=== PATIENT | male | born 1985 | race Two or more races ===

== ENCOUNTER 2018-07-11 09:31 | Emergency (ER) | payer MEDICAID, OTHER ==
[~2018-07-11] VITALS: Ht 182.9 cm; Wt 136.1 kg
[~2018-07-11 09:31] MED LIST: CLIN300C2
[2018-07-11 09:39] VITALS: BP 134/89
[2018-07-11] MEDS ORDERED: KETOROLAC TROMETH 60MG/2ML VIAL IM ONE (11:15)
== END 2018-07-11 11:40 | disposition home or self-care (01) ==
LOC: ER 09:33
DX: G89.29 Other chronic pain (principal); M54.5 Low back pain; M43.07 Spondylolysis, lumbosacral region; X50.0XXA Overexertion from strenuous movement or load, initial encounter; Y93.89 Activity, other specified; Y99.8 Other external cause status; Y92.89 Other specified places as the place of occurrence of the external cause
CPT/HCPCS: 72100; 96372; 99283; J1885

== ENCOUNTER 2022-09-02 11:37 | Inpatient (IN) | payer OTHER, MEDICAID ==
[~2022-09-02] VITALS: Ht 182.9 cm; Wt 143.0 kg
[2022-09-02 14:43] LABS: Urine Bacteria NONE SEEN /hpf (None Seen); Urine Blood Negative /uL (Negative); Urine Mucus FEW (None Seen); Urine Specific Gravity 1.021 (1.001-1.035); Urine WBC 1 /hpf (0 - 3)
[2022-09-02 15:47] LABS: Basophils # (auto) 0.1 10 ^3/uL (0-0.2); Basophils % (auto) 0.6 % (0.0-2.0); Eosinophils # (auto) 0.3 10 ^3/uL (0-0.8); Eosinophils % (auto) 3.8 % (0.0-7.0); Hematocrit 46.5 % (41.0-53.0); Hemoglobin 16.1 g/dL (13.5-17.5); Lymphocytes # (auto) 2.6 10 ^3/uL (0.4-5.4); Lymphocytes % (auto) 30.9 % (10.0-50.0); Mean Corpuscular Hemoglobin 32.7 pg (28.0-32.0); Mean Corpuscular Hgb Conc. 34.7 g/dL (32.0-36.0); Mean Corpuscular Volume 94.4 fL (80.0-100.0); Monocytes # (auto) 0.7 10 ^3/uL (0-1.3); Monocytes % (auto) 8.6 % (0.0-12.0); Neutrophils # (auto) 4.8 10 ^3/uL (1.6-8.6); Neutrophils % (auto) 56.1 % (37.0-80.0); Nucleated Red Blood Cells % 0.1 %; Red Blood Cells 4.93 10^6/uL (4.5-5.90); Red Cell Distribution Width 12.9 % (11.8-14.3); White Blood Cell 8.5 10^3/uL (4.4-10.8)
[2022-09-02 16:05] LABS: Albumin 3.7 g/dL (3.4-5.0); BUN/Creatinine Ratio 15.8 (10.0-20.0); Calcium 8.5 mg/dL (8.5-10.1); Potassium 4.4 mmol/L (3.5-5.1)
[2022-09-02 16:08] LABS: Bilirubin, Total 0.6 mg/dL (0.2-1.0); Total Protein 6.9 g/dL (6.4-8.2)
[2022-09-02] MEDS ORDERED: NITROGLYCERIN 0.4 MG SL TAB SL PRN (18:00)
[2022-09-02] MEDS ORDERED: MORPHINE SULFATE INJ 2 MG/ml SYRG IV PRN (18:00)
[2022-09-02] MEDS ORDERED: HYDROcodone-ACET 5/325MG TAB PO PRN (18:00)
[2022-09-02] MEDS ORDERED: ACETAMINOPHEN 325 MG TAB PO PRN (18:00)
[2022-09-02] MEDS ORDERED: ATOR20TA50 PO (18:03)
[2022-09-02] MEDS ORDERED: LISI40TA16 PO (18:03)
[2022-09-02] MEDS ORDERED: KETOROLAC TROMETH 30 MG/ML 1ML VIAL IV PRN (18:15)
[2022-09-02] MEDS ORDERED: MECLIZINE HCL 25 MG TAB PO PRN (18:15)
[2022-09-02] MEDS ORDERED: ASPirin 325 MG TAB PO ONE (18:15)
[2022-09-02] MEDS ORDERED: KETOROLAC TROMETH 30 MG/ML 1ML VIAL IV ONE (18:15)
[2022-09-02 18:52] LABS: Cholesterol 121 mg/dL (< 200)
[2022-09-02 18:55] LABS: HDL Cholesterol 43 mg/dL (40-59); LDL Cholesterol 69 mg/dL (< 100); Triglycerides 109 mg/dL (< 150)
[2022-09-02] MEDS: SODIUM CHLORIDE 0.9% 1,000 ML IV SCH (23:30)
[2022-09-03 00:53] VITALS: BP 132/94
[2022-09-03 05:00] VITALS: BP_SYST 110; BP_SYST 111; BP_SYST 129; BP_DIAS 58; BP_DIAS 62; BP_DIAS 80
[2022-09-03 05:40] LABS: Basophils # (auto) 0.1 10 ^3/uL (0-0.2); Basophils % (auto) 0.6 % (0.0-2.0); Eosinophils # (auto) 0.4 10 ^3/uL (0-0.8); Eosinophils % (auto) 4.2 % (0.0-7.0); Hematocrit 43.3 % (41.0-53.0); Hemoglobin 15.2 g/dL (13.5-17.5); Lymphocytes # (auto) 3.2 10 ^3/uL (0.4-5.4); Lymphocytes % (auto) 33.9 % (10.0-50.0); Mean Corpuscular Hemoglobin 33.3 pg (28.0-32.0); Mean Corpuscular Hgb Conc. 35.1 g/dL (32.0-36.0); Mean Corpuscular Volume 94.9 fL (80.0-100.0); Monocytes # (auto) 0.8 10 ^3/uL (0-1.3); Monocytes % (auto) 8.3 % (0.0-12.0); Neutrophils # (auto) 4.9 10 ^3/uL (1.6-8.6); Nucleated Red Blood Cells % 0.1 %; Red Blood Cells 4.57 10^6/uL (4.5-5.90); Red Cell Distribution Width 12.9 % (11.8-14.3); White Blood Cell 9.3 10^3/uL (4.4-10.8)
[2022-09-03 05:55] LABS: Albumin 3.3 g/dL (3.4-5.0); Potassium 4.2 mmol/L (3.5-5.1)
[2022-09-03 05:59] LABS: Bilirubin, Total 0.8 mg/dL (0.2-1.0); Total Protein 6.2 g/dL (6.4-8.2)
[2022-09-03] MEDS: SODIUM CHLORIDE 0.9% 1,000 ML IV SCH (07:20)
[2022-09-03 09:00] VITALS: BP 113/74
[2022-09-03] MEDS ORDERED: ATORVASTATIN 20 MG TAB PO SCH (10:00)
[2022-09-03] MEDS ORDERED: ASPirin 81 mg TAB PO SCH (10:00)
[2022-09-03] MEDS ORDERED: LISINOPRIL 20 MG TAB PO SCH (10:00)
[2022-09-03 13:16] VITALS: BP 123/82
[2022-09-03 17:00] VITALS: BP 125/77
[2022-09-03 19:31] VITALS: BP 115/75
== END 2022-09-03 21:00 | disposition home or self-care (01) | DRG 103 ==
LOC: ER 11:37 → TELE 18:01 → TELE-WESTW 23:10
PROVIDERS: ADMIT Nurse Practitioner Family; ATTEND Internal Medicine
DX: G43.909 Migraine, unspecified, not intractable, without status migrainosus (principal); Z68.41 Body mass index [BMI] 40.0-44.9, adult; E66.01 Morbid (severe) obesity due to excess calories; E78.5 Hyperlipidemia, unspecified; F17.210 Nicotine dependence, cigarettes, uncomplicated; I10 Essential (primary) hypertension
CPT/HCPCS: 36415; 70450; 70551; 71045; 80053; 80061; 81001; 84443; 84484; 85025; 93005; 93886; G0378; J1885

== ENCOUNTER 2023-05-09 06:53 | Emergency (ER) | payer OTHER, MEDICAID ==
[~2023-05-09] VITALS: Ht 182.9 cm; Wt 150.0 kg
[~2023-05-09 06:53] MED LIST changes: +ATOR20TA50 PO; +LISI40TA16 PO
[2023-05-09 07:25] VITALS: BP 115/88; PULSE 102; RESP 15; TEMP 98.2; O2SAT 96
[2023-05-09 08:19] LABS: COVID19 ANTIGEN SOFIA FIA NEGATIVE (NEGATIVE); Rapid Influenza A Negative (Negative)
[2023-05-09 08:24] LABS: Rapid Influenza B Positive (Negative)
[2023-05-09] MEDS ORDERED: PROM1SOL4 PO (08:33)
[2023-05-09] MEDS ORDERED: PRED20TA2 PO (08:33)
[2023-05-09] MEDS ORDERED: TAMIFLU PO (08:33)
== END 2023-05-09 08:39 | disposition home or self-care (01) ==
LOC: ER 06:53
DX: J10.1 Influenza due to other identified influenza virus with other respiratory manifestations (principal); J20.9 Acute bronchitis, unspecified; I10 Essential (primary) hypertension; E78.5 Hyperlipidemia, unspecified; Z20.822 Contact with and (suspected) exposure to COVID-19
CPT/HCPCS: 36415; 71046; 87426; 87804

== ENCOUNTER 2024-09-16 21:20 | Inpatient (IN) | payer MEDICAID, OTHER ==
[~2024-09-16] VITALS: Ht 180.3 cm; Wt 146.7 kg
[~2024-09-16 21:20] MED LIST changes: +PRED20TA2 PO; +PROM1SOL4 PO; +TAMIFLU PO
--- NOTE | 2024-09-16 22:06 | ED.PDOC ---
HPI (NEURO) HPI Comments 39-year-old male came to ER for headache. Patient has a history of migraines, hypertension and dyslipidemia. States 2 days ago he started experiencing left fronto parietal headaches, aching, throbbing, constant, nonradiating. 2 hours ago, he started noticing blurring of his peripheral vision of the right eye, unable to see clearly the right lateral area of his vision. Patient also states he had difficulty verbalizing/ forming words, onset around the same time as the visual disturbance. He states the speech difficulty lasted about 10 minutes, then resolved, however the visual disturbance is persistent. Patient also complaining of generalized weakness. Blood pressure upon arrival was 155/98 mm Hg. Chief Complaint: Headaches Time Seen by MD: 22:04 Primary Care Provider: HALLE Mcdermott Notes: Nurses Notes Information Source: Patient Mode of Arrival: Ambulatory Severity: Moderate Dizziness/Weakness Severity: Unable to do activities Headache Severity: Moderate Timing: Days Duration: Intermittent Prehospital treatment: None Headache Quality: Throbbing, Aching Headache Location: Frontal (left ), Parietal (left) Weakness Location: Generalized Onset: With light exertion Circumstances: Spontaneous Symptoms: Difficult speech, Change of vision, Vision loss, Difficulty talking Associated Signs and Symptoms: Headache, Blurred Vision Past Medical History PAST MEDICAL HISTORY: High Lipids, HTN Surgical History: Denies all surgeries Family History Family History: Reviewed,noncontributory to illness Social History Smoker: Non-Smoker Alcohol: Occasionally Drugs: Denies Drug Use Lives In: Home Constitutional: denies: chills, diaphoresis, fatigue, fever, malaise, sweats, weakness, others EENTM: reports: blurred vision; denies: double vision, ear bleeding, ear discharge, ear drainage, ear pain, ear ringing, eye pain, eye redness, hearing loss, mouth pain, mouth swelling, nasal discharge, nose bleeding, nose congestion, nose pain, photophobia, tearing, throat pain, throat swelling, voice changes, others Respiratory: denies: cough, hemoptysis, orthopnea, SOB at rest, shortness of breath, SOB with excertion, stridor, wheezing, others Cardiovascular: denies: chest pain, dizzy spells, diaphoresis, Dyspnea on exertion, edema, irregular heart beat, left arm pain, lightheadedness, palpitations, PND, syncope, others Gastrointestinal: denies: abdomen distended, abdominal pain, blood streaked bowels, constipated, diarrhea, dysphagia, difficulty swallowing, hematemesis, melena, nausea, poor appetite, poor fluid intake, rectal bleeding, rectal pain, vomiting, others Genitourinary: denies: burning, dysuria, flank pain, frequency, hematuria, incontinence, penile discharge, penile sore, pain, testicle pain, testicle swelling, urgency, others Neurological: reports: headache, speech problems; denies: dizziness, fainting, left sided numbness, left sided weakness, numbness, paresthesia, pre-existing deficit, right sided numbness, right sided weakness, seizure, tingling, tremors, weakness, others Musculoskeletal: denies: back pain, gout, joint pain, joint swelling, muscle pain, muscle stiffness, neck pain, others Integumetry: denies: bruises, change in color, change in hair/nails, dryness, laceration, lesions, lumps, rash, wounds, others Allergic/Immunocompromised: denies: Difficulty Healing, Frequent Infections, Hives, Itching, others Hematologic/Lymphatic: denies: anemia, blood clots, easy bleeding, easy bruising, swollen glands, others Endocrine: denies: excessive hunger, excessive sweating, excessive thirst, excessive urination, flushing, intolerance to cold, intolerance to heat, unexplained weight gain, unexplained weight loss, others Psychiatric: denies: anxiety, bipolar disorder, depression, hopeless, panic disorder, schizophrenia, sleepless, suicidal, others Physical Exam General Appearance: No Apparent Distress, Obese HEENT: PERRL/EOMI, Other (No facial asymmetry. Moist mucous membranes.) Neck: Full Range of Motion, Non-Tender, Normal Inspection, Supple Respiratory: Lungs Clear, No Accessory Muscle Use, No Respiratory Distress, Normal Breath Sounds Cardiovascular: No Edema, No JVD, Regular Rate/Rhythm Breast Exam: Deferred Gastrointestinal: Non Tender, Soft Genitalia: Deferred Pelvic: Deferred Rectal: Deferred Extremities: Normal inspection, Normal range of motion, Non-tender, No pedal edema Neurologic: Alert (Oriented x4), nurse discharge planner II-XII nml as Tested, Headache, No Motor Deficits, Normal Affect, Normal Mood, Other (Patient reports visual distortion of the right visual field periphery) Cerebellar Function: Normal Reflexes: NOT DONE Skin: Dry, Normal Color, Warm Lymphatic: NOT DONE Was a procedure done? Was a procedure done?: No Differential Diagnosis (SZ) CVA: CVA, Electrolyte Imbalance, Encephalopathy, TIA Headache: Migraine, CVA X-Ray, Labs, Meds, VS Vital Signs Date Time Temp Pulse Resp B/P (MAP) Pulse Ox O2 Delivery O2 Flow Rate FiO2 09/16/24 23:20 98.0 83 16 134/92 (106) 96 98.0 09/16/24 23:20 Room Air* 0 21 09/16/24 21:30 97.8 95 18 155/98 (117) 96 97.8 Lab Test 09/16/24 22:51 09/16/24 22:07 Range/Units Troponin I High Sensitivity 5 3 L </=54 ng/L White Blood Count 11.7 H 4.4-10.8 10^3/uL Red Blood Count 5.00 4.5-5.90 10^6/uL Hemoglobin 15.9 13.5-17.5 g/dL Hematocrit 46.7 41.0-53.0 % Mean Corpuscular Volume 93.4 80.0-100.0 fL Mean Corpuscular Hemoglobin 31.8 28.0-32.0 pg Mean Corpuscular Hemoglobin Concent 34.0 32.0-36.0 g/dL Red Cell Distribution Width 13.5 11.8-14.3 % Platelet Count 222 140-450 10^3/uL Mean Platelet Volume 9.3 6.9-10.8 fL Neutrophils (%) (Auto) 69.7 37.0-80.0 % Lymphocytes (%) (Auto) 20.0 10.0-50.0 % Monocytes (%) (Auto) 7.7 0.0-12.0 % Eosinophils (%) (Auto) 2.1 0.0-7.0 % Basophils (%) (Auto) 0.5 0.0-2.0 % Neutrophils # (Auto) 8.2 1.6-8.6 10 ^3/uL Lymphocytes # (Auto) 2.3 0.4-5.4 10 ^3/uL Monocytes # (Auto) 0.9 0-1.3 10 ^3/uL Eosinophils # (Auto) 0.2 0-0.8 10 ^3/uL Basophils # (Auto) 0.1 0-0.2 10 ^3/uL Nucleated Red Blood Cells 0.1 % Sodium Level 141 136-145 mmol/L Potassium Level 4.4 3.5-5.1 mmol/L Chloride Level 107 98-107 mmol/L Carbon Dioxide Level 25 20-31 mmol/L Anion Gap 9 5-15 Blood Urea Nitrogen 12 9-23 mg/dL Creatinine 1.30 0.700-1.30 mg/dL Glomerular Filtration Rate Calc 71 >90 mL/min BUN/Creatinine Ratio 9.2 L 10.0-20.0 Serum Glucose 102 74-106 mg/dL Calcium Level 10.2 8.7-10.4 mg/dL Current Medications Medications (Trade) Dose Ordered Sig/Jose Route Start Time Stop Time Status Last Admin Acetaminophen/ Hydrocodone Bitart (Forbes 5/325MG Tab) 1 tab ONCE ONCE PO 09/16/24 22:00 09/16/24 22:01 DC 09/16/24 23:19 CT HEAD WITHOUT CONTRAST INDICATION: L sided TRIVEDI, speech difficulty, L periph vision deficit EXAM DATE: 09/16/2024 10:07 PM COMPARISON: CT HEAD WITHOUT CONTRAST on DOS: 09/02/22 RADIATION DOSE: CTDIvol: 59.97 mGy, DLP: 1181.8 mGy*cm PROCEDURE: CT scans of the head were obtained from the vertex to the skull base. Sagittal and coronal reconstructions were provided. All CT scans at this medical facility are performed using dose modulation techniques as appropriate to a performed exam including the following: Automated exposure control was utilized; adjustment of the MA and/or KV according to patient size; and use of iterative reconstruction technique. FINDINGS: The cerebral parenchyma appears to be normal configuration and attenuation. The ventricles, cisterns, and sulci appear age-appropriate. There is no evidence for acute territorial infarct, hemorrhage, or mass effect. The orbits are normal. The visualized paranasal sinuses and mastoid air cells are clear. The soft tissues and osseous structures appear within normal limits. IMPRESSION: 1. No acute territorial infarct, intracranial hemorrhage, or mass effect. If clinical symptoms persist, MRI may be beneficial in further assessment. CHEST RADIOGRAPH Indication: possible cva Technique: Single frontal view of the chest was obtained Comparison: XY CHEST XRAY 1 VIEW on DOS: 09/02/22 FINDINGS: Lines and Tubes: None Lungs: No focal consolidation. Pleura: No effusion. No pneumothorax. Cardiomediastinal contours: Unremarkable Bones: No acute osseous abnormality. IMPRESSION: 1. No acute cardiopulmonary disease. X-Ray, Labs, Meds, VS Comment 39-year-old male with a history of hypertension, dyslipidemia and migraines complaining of headache, right-sided peripheral visual disturbance, and transient speech difficulty Vitals remarkable for BP 155/98 Exam remarkable for reporting of right eye peripheral visual field distortion Rhythm strip independently interpreted by me: Sinus rhythm, rate 95, no ectopy. CT head unremarkable Chest x-ray unremarkable CBC remarkable for WBC 11.7, basic metabolic panel and 2 serial troponins unremarkable Patient treated with the following in the ED: Forbes 5/325 mg p.o., aspirin 325 mg p.o. with improvement of headache. No new neurologic changes during his stay in the ED. Plan is to admit the patient for brain MRI and Neurology evaluation. Time of 1ST Reevaluation: 21:58 Reevaluation 1ST: Unchanged Patient Education/Counseling: Diagnosis, Treatment Family Education/Counseling: No Family Present Departure 1 Departure Time of Disposition: 23:30 Impression: Primary Impression: Cephalgia Additional Impressions: Visual disturbance Transient speech disturbance Disposition: ADMITTED INPATIENT Admit to: Tele Condition: Guarded Critical Care Note Critical Care Time?: Yes (35 min-critical care time only) Critical care comment: Critical care time including multiple bedside re-evaluations, review of lab and imaging studies, and discussion of the case with the admitting provider. Fadumo ent is high risk for neurologic decompensation. Stability Stability form required: No Heart Score Heart Score: Heart Score Response (Comments) Value History N/A 0 EKG N/A 0 Age N/A 0 Risk Factors N/A 0 Troponin N/A 0 Total 0 I personally scribed for JAIMIE RICHTER MD ([email or web address]) on 09/16/24 at 22:05. Electronically submitted by Edy Romero ([facility]). I personally scribed for JAIMIE RICHTER MD ([email or web address]) on 09/16/24 at 22:58. Electronically submitted by Edy Romero ([facility]). JAIMIE RICHTER MD Sep 16, 2024 22:05
[2024-09-16 22:22] LABS: Basophils # (auto) 0.1 10 ^3/uL (0-0.2); Basophils % (auto) 0.5 % (0.0-2.0); Eosinophils # (auto) 0.2 10 ^3/uL (0-0.8); Eosinophils % (auto) 2.1 % (0.0-7.0); Hematocrit 46.7 % (41.0-53.0); Hemoglobin 15.9 g/dL (13.5-17.5); Lymphocytes # (auto) 2.3 10 ^3/uL (0.4-5.4); Mean Corpuscular Hemoglobin 31.8 pg (28.0-32.0); Mean Corpuscular Volume 93.4 fL (80.0-100.0); Monocytes # (auto) 0.9 10 ^3/uL (0-1.3); Monocytes % (auto) 7.7 % (0.0-12.0); Neutrophils # (auto) 8.2 10 ^3/uL (1.6-8.6); Neutrophils % (auto) 69.7 % (37.0-80.0); Nucleated Red Blood Cells % 0.1 %; Platelet Count (auto) 222 10^3/uL (140-450); Red Cell Distribution Width 13.5 % (11.8-14.3); White Blood Cell 11.7 10^3/uL (4.4-10.8)
[2024-09-16 22:32] LABS: Chloride 107 mmol/L (98-107); Potassium 4.4 mmol/L (3.5-5.1); Sodium 141 mmol/L (136-145)
[2024-09-16 22:33] LABS: Anion Gap 9 (5-15); Calcium 10.2 mg/dL (8.7-10.4); Carbon Dioxide 25 mmol/L (20-31)
[2024-09-16 22:38] LABS: BUN/Creatinine Ratio 9.2 (10.0-20.0); Blood Urea Nitrogen 12 mg/dL (9-23); Glucose 102 mg/dL (74-106)
--- NOTE | 2024-09-16 22:43 | DVH ---
CT HEAD WITHOUT CONTRAST INDICATION: L sided TRIVEDI, speech difficulty, L periph vision deficit EXAM DATE: 09/16/2024 10:07 PM COMPARISON: CT HEAD WITHOUT CONTRAST on DOS: 09/02/22 RADIATION DOSE: CTDIvol: 59.97 mGy, DLP: 1181.8 mGy*cm PROCEDURE: CT scans of the head were obtained from the vertex to the skull base. Sagittal and coronal reconstructions were provided. All CT scans at this medical facility are performed using dose modulation techniques as appropriate t o a performed exam including the following: Automated exposure control was utilized; adjustment of th e MA and/or KV according to patient size; and use of iterative reconstruction technique. FINDINGS: The cerebral parenchyma appears to be normal configuration and attenuation. The ventricles, cisterns , and sulci appear age-appropriate. There is no evidence for acute territorial infarct, hemorrhage, or mass effect. The orbits are normal. The visualized paranasal sinuses and mastoid air cells are clear. The soft t issues and osseous structures appear within normal limits. IMPRESSION: 1. No acute territorial infarct, intracranial hemorrhage, or mass effect. If clinical symptoms persis t, MRI may be beneficial in further assessment.
--- NOTE | 2024-09-16 22:43 | DVH ---
CHEST RADIOGRAPH Indication: possible cva Technique: Single frontal view of the chest was obtained Comparison: XY CHEST XRAY 1 VIEW on DOS: 09/02/22 FINDINGS: Lines and Tubes: None Lungs: No focal consolidation. Pleura: No effusion. No pneumothorax. Cardiomediastinal contours: Unremarkable Bones: No acute osseous abnormality. IMPRESSION: 1. No acute cardiopulmonary disease.
[2024-09-16] MEDS: HYDROcodone-ACET 5/325MG TAB PO ONE (23:19)
[2024-09-16] MEDS ORDERED: ONDANSETRON HCL 4 MG/2 ML VIAL IV PRN (23:45)
[2024-09-16] MEDS ORDERED: ACETAMINOPHEN 325 MG TAB PO PRN (23:45)
[2024-09-16] MEDS ORDERED: HYDROcodone-ACET 5/325MG TAB PO PRN (23:45)
[2024-09-16] MEDS ORDERED: DOCUSATE SOD 100 MG CAP PO PRN (23:45)
--- NOTE | 2024-09-16 23:50 | DVHHP2 ---
History of Present Illness Reason for Visit: Headache History of Present Illness The patient is a 39-year-old male with past medical history of hypertension and hyperlipidemia who presented to [facility] ED with complaint of headache. Patient states he has been experiencing left fronto parietal headaches, aching, throbbing, constant, nonradiating, he started noticing blurring of his peripheral vision of the right eye, unable to see clearly, the right lateral area of his vision. Patient also states he had difficulty verbalizing/forming words, onset around the same time as the visual disturbance. He states the speech difficulty lasted about 10 minutes, then resolved, however the visual disturbance is persistent. Patient was seen and evaluated in the ED, laboratory data shows WBC 11.7, platelets 222, sodium 141, potassium 4.4, BUN 12, creatinine 1.30, glucose 102, calcium 10.2, troponin 5, blood pressure 134/92, heart rate 83, temperature 98.0 F, O2 saturation 96% room air. Past Medical History High Lipids, HTN Past Surgical History Denies all surgeries Family History Reviewed, noncontributory to the management of this case. Past Social History The patient lives at home, denies smoking, alcohol or illicit drugs abuse. Review of Systems Constitutional: No: Fever, Chills, Sweats, Weakness, Malaise, Other Eyes: Other (Blurry vision); No: Pain, Vision change, Conjunctivae inflammation, Eyelid inflammation, Redness ENT: No: Ear pain, Ear discharge, Nose pain, Nose discharge, Nose congestion, Mouth pain, Mouth swelling, Throat pain, Throat swelling, Other Respiratory: No: Cough, Dry, Shortness of breath, SOB with excertion, Wheezing, Hemoptysis, Pleuritic Pain, Sputum, Wheezing, Other Cardiovascular: No: Chest Pain, Palpitations, Orthopnea, Paroxysmal Noc. Dyspnea, Edema, Lt Headedness, Other Gastrointestinal: No: Nausea, Vomiting, Abdominal Pain, Diarrhea, Constipation, Melena, Hematochezia, Other Genitourinary: No Dysuria, No Frequency, No Incontinence, No Hematuria, No Retention, No Other Musculoskeletal: No: other, neck pain, shoulder pain, arm pain, back pain, hand pain, leg pain, foot pain Skin: No: Rash, Lesions, Jaundice, Bruising, Other Neurological: Other (Headache, speech problems.); No: Weakness, Numbness, Incoordination, Change in speech, Confusion, Seizures Allergies: Coded Allergies: NO KNOWN ALLERGIES (Unverified , 09/22/11) Medications Current Medications Medications Dose Ordered Sig/Jose Route Start Time Stop Time Status Last Admin Dose Admin Lisinopril 20 mg DAILY PO 09/17/24 10:00 UNV Atorvastatin Calcium 20 mg HS PO 09/17/24 22:00 UNV Sodium Chloride 10 ml Q8HR IV 09/17/24 06:00 UNV Acetaminophen/ Hydrocodone Bitart 1 tab Q4HP PRN PO 09/16/24 23:45 UNV Ondansetron HCl 4 mg Q4HP PRN IV 09/16/24 23:45 UNV Docusate Sodium 100 mg BIDPRN PRN PO 09/16/24 23:45 UNV Acetaminophen 650 mg Q6HP PRN PO 09/16/24 23:45 UNV Exam Vital Signs Vital Signs Date Time Temp Pulse Resp B/P (MAP) Pulse Ox O2 Delivery O2 Flow Rate FiO2 09/16/24 23:20 98.0 83 16 134/92 (106) 96 98.0 09/16/24 23:20 Room Air* 0 21 General Appearance: Alert, Oriented X3, Cooperative, No acute distress HEENT: Atraumatic, PERRLA, EOMI, Mucous membr. moist/pink Respiratory: Clear to auscultation, Normal air movement Cardiovascular: Regular rate, Normal S1, Normal S2, No murmurs Abdominal: Normal bowel sounds, Soft, No tenderness, No hepatospenomegaly, No masses Extremities: No clubbing, No cyanosis, No edema, Normal pulses, No tenderness/swelling Skin: No rashes, No breakdown, No significant lesion Neuro: Normal gait, Normal speech, Strength at 5/5 X4 ext, Normal tone, Sensation intact, Cranial nerves 3-12 NL, Reflexes 2+ Psych/Mental Status: Mental status NL, Mood NL Labs/Xrays Labs Test 09/16/24 22:51 09/16/24 22:07 Range/Units Troponin I High Sensitivity 5 </=54 ng/L White Blood Count 11.7 H 4.4-10.8 10^3/uL Red Blood Count 5.00 4.5-5.90 10^6/uL Hemoglobin 15.9 13.5-17.5 g/dL Hematocrit 46.7 41.0-53.0 % Mean Corpuscular Volume 93.4 80.0-100.0 fL Mean Corpuscular Hemoglobin 31.8 28.0-32.0 pg Mean Corpuscular Hemoglobin Concent 34.0 32.0-36.0 g/dL Red Cell Distribution Width 13.5 11.8-14.3 % Platelet Count 222 140-450 10^3/uL Mean Platelet Volume 9.3 6.9-10.8 fL Neutrophils (%) (Auto) 69.7 37.0-80.0 % Lymphocytes (%) (Auto) 20.0 10.0-50.0 % Monocytes (%) (Auto) 7.7 0.0-12.0 % Eosinophils (%) (Auto) 2.1 0.0-7.0 % Basophils (%) (Auto) 0.5 0.0-2.0 % Neutrophils # (Auto) 8.2 1.6-8.6 10 ^3/uL Lymphocytes # (Auto) 2.3 0.4-5.4 10 ^3/uL Monocytes # (Auto) 0.9 0-1.3 10 ^3/uL Eosinophils # (Auto) 0.2 0-0.8 10 ^3/uL Basophils # (Auto) 0.1 0-0.2 10 ^3/uL Nucleated Red Blood Cells 0.1 % Sodium Level 141 136-145 mmol/L Potassium Level 4.4 3.5-5.1 mmol/L Chloride Level 107 98-107 mmol/L Carbon Dioxide Level 25 20-31 mmol/L Anion Gap 9 5-15 Blood Urea Nitrogen 12 9-23 mg/dL Creatinine 1.30 0.700-1.30 mg/dL Glomerular Filtration Rate Calc 71 >90 mL/min BUN/Creatinine Ratio 9.2 L 10.0-20.0 Serum Glucose 102 74-106 mg/dL Calcium Level 10.2 8.7-10.4 mg/dL PATIENT: SHENA JAIMESCCT: [id number] UNIT: [id number] : 1985 LOC: ER ROOM / BED: / AGE / SEX: 39 / M ADM STATUS: REG ER SERVICE [id number] ORDERING PHYSICIAN: JAIMIE RICHTER MD PROCEDURE(s): HWOCT - HEAD WITHOUT CONTRAST REASON: L sided TRIVEDI, speech difficulty, L periph vision deficit ORDER NUMBER(s): [id number], ACCESSION NUMBER(s): [id number] CT HEAD WITHOUT CONTRAST INDICATION: L sided TRIVEDI, speech difficulty, L periph vision deficit EXAM DATE: 09/16/2024 10:07 PM COMPARISON: CT HEAD WITHOUT CONTRAST on DOS: 09/02/22 RADIATION DOSE: CTDIvol: 59.97 mGy, DLP: 1181.8 mGy*cm PROCEDURE: CT scans of the head were obtained from the vertex to the skull base. Sagittal and coronal reconstructions were provided. All CT scans at this medical facility are performed using dose modulation techniques as appropriate to a performed exam including the following: Automated exposure control was utilized; adjustment of the MA and/or KV according to patient size; and use of iterative reconstruction technique. FINDINGS: The cerebral parenchyma appears to be normal configuration and attenuation. The ventricles, cisterns, and sulci appear age-appropriate. There is no evidence for acute territorial infarct, hemorrhage, or mass effect. The orbits are normal. The visualized paranasal sinuses and mastoid air cells are clear. The soft tissues and osseous structures appear within normal limits. IMPRESSION: 1. No acute territorial infarct, intracranial hemorrhage, or mass effect. If clinical symptoms persist, MRI may be beneficial in further assessment. ORDERING PHYSICIAN: JAIMIE RICHTER MD PROCEDURE(s): CXRP - CHEST PORTABLE REASON: possible cva ORDER NUMBER(s): [id number], ACCESSION NUMBER(s): [id number] CHEST RADIOGRAPH Indication: possible cva Technique: Single frontal view of the chest was obtained Comparison: XY CHEST XRAY 1 VIEW on DOS: 09/02/22 FINDINGS: Lines and Tubes: None Lungs: No focal consolidation. Pleura: No effusion. No pneumothorax. Cardiomediastinal contours: Unremarkable Bones: No acute osseous abnormality. IMPRESSION: 1. No acute cardiopulmonary disease. Assessment/Plan Assessment/Plan Cephalgia Visual disturbance Transient speech disturbance Plan 1. Admit to telemetry unit 2. Breathing treatment 3. Pain control management 4. Management of fluids and electrolytes 5. Consultation for neurology/hospitalized 6. Diagnostic tests head CT 7. DVT prophylaxis on SCDs 8. Repeat labs CBC, CMP in a.m. 9. Continue with current medical management 10. Treatment plan discussed with patient and RN. Patient verbalized understanding. Plan discussed with: Patient, Other (RN) My Orders Orders - EMMA SOLIZ DNP Procedure Category Date Status Time Lisinopril Tablet PHA 09/17/24 Logged (Zestril Tablet) 10:00 Atorvastatin (Lipitor) PHA 09/17/24 Logged 22:00 Allergies NABOR 09/16/24 In Process 23:41 Code Status CODE 09/16/24 Transmitted 23:41 Sodium Chloride Lock PHA 09/17/24 Logged (Saline Lock Ns) 06:00 Oxygen Per Hour RT 09/16/24 Transmitted 23:41 Hydrocodone-Acet PHA 09/16/24 Logged 5/325mg Tab (Alvin 23:45 Ondansetron Hcl PHA 09/16/24 Logged (Zofran) 23:45 Docusate Sodium PHA 09/16/24 Logged Capsule (Colace 23:45 Complete Blood Count LAB 09/17/24 Verified 04:00 Comprehensive LAB 09/17/24 Verified Metabolic Panel 04:00 Cardiac DIET 09/17/24 Transmitted Diet-2gna,Lofat,Lochol Breakfast Condition: Serious NABOR 09/16/24 In Process 23:41 Acetaminophen Tablet PHA 09/16/24 Logged (Tylenol Tablet) 23:45 Bedrest With Bathroom NABOR 09/16/24 In Process Privileg 23:41 Sequential NABOR 09/16/24 In Process Compression Device Problem List: (1) Cephalgia (2) Visual disturbance (3) Transient speech disturbance Date of Service: Sep 16, 2024 Billing Provider: EMMA SOLIZ DNP Common Visit Codes: 02375-[id number] INP/OBS CARE (HIGH) EMMA SOLIZ DNP Sep 16, 2024 23:50
[2024-09-17] VITALS (7 sets, daily range): BP systolic 117–139; BP diastolic 80–99; PULSE 61–102; RESP 12–18; TEMP 97.6–98.6; O2SAT 97–99
[2024-09-17] MEDS ORDERED: NITROGLYCERIN 0.4 MG SL TAB SL PRN
[2024-09-17] MEDS ORDERED: MORPHINE SULFATE INJ 2 MG/ml SYRG IV PRN
[2024-09-17] MEDS: HYDROcodone-ACET 5/325MG TAB ONE (01:52)
[2024-09-17] MEDS: ASPirin 325 MG TAB PO ONE (02:15)
[2024-09-17 03:26] LABS: Urine Bacteria None Seen /hpf (None Seen)
[2024-09-17 03:35] LABS: Urine Blood Negative /uL (Negative); Urine Clarity Clear (Clear); Urine Color Light-Yellow (Yellow); Urine Protein, UAD Negative (Negative); Urine Specific Gravity 1.018 (1.001-1.035); Urine Squamous Epithelial Cell None Seen /hpf (<5); Urine Urobilinogen Normal (Negative); Urine WBC < 1 /HPF (0-3); Urine pH 5.5 (5.0-9.0)
[2024-09-17 03:49] LABS: Basophils # (auto) 0 10 ^3/uL (0-0.2); Basophils % (auto) 0.5 % (0.0-2.0); Eosinophils # (auto) 0.3 10 ^3/uL (0-0.8); Eosinophils % (auto) 3.2 % (0.0-7.0); Hematocrit 46.8 % (41.0-53.0); Hemoglobin 16.2 g/dL (13.5-17.5); Lymphocytes # (auto) 3.2 10 ^3/uL (0.4-5.4); Lymphocytes % (auto) 35.1 % (10.0-50.0); Mean Corpuscular Hemoglobin 32.3 pg (28.0-32.0); Mean Corpuscular Hgb Conc. 34.6 g/dL (32.0-36.0); Mean Corpuscular Volume 93.3 fL (80.0-100.0); Monocytes # (auto) 0.8 10 ^3/uL (0-1.3); Monocytes % (auto) 8.7 % (0.0-12.0); Neutrophils # (auto) 4.9 10 ^3/uL (1.6-8.6); Neutrophils % (auto) 52.5 % (37.0-80.0); Platelet Count (auto) 227 10^3/uL (140-450); Red Blood Cells 5.02 10^6/uL (4.5-5.90); Red Cell Distribution Width 13.8 % (11.8-14.3); White Blood Cell 9.2 10^3/uL (4.4-10.8)
[2024-09-17 04:11] LABS: Alanine Aminotransferase 36 U/L (7-40); Albumin 4.7 g/dL (3.2-4.8); Alkaline Phosphatase 79 U/L (46-116); Anion Gap 9 (5-15); BUN/Creatinine Ratio 11.6 (10.0-20.0); Blood Urea Nitrogen 13 mg/dL (9-23); Carbon Dioxide 27 mmol/L (20-31); Chloride 105 mmol/L (98-107); Glucose 86 mg/dL (74-106); Sodium 141 mmol/L (136-145); Total Protein 7.4 g/dL (5.7-8.2)
[2024-09-17 04:15] LABS: Aspartate Aminotransferase 37 U/L (<34); Bilirubin, Total 1.3 mg/dL (0.2-1.0)
[2024-09-17] MEDS: SODIUM CHLOR 0.9% PF (SALINE LOCK) 10ML VIAL/SYR IV SCH (04:49)
--- NOTE | 2024-09-17 09:16 | DVHPN2 ---
Subjective Decreasing severity of headache; speech back to normal; normal vision by left eye Reviewed: Care Plan, H&P, Labs, Medications, Previous Orders, Radiology Changes from previous H/P or p: Changes Objective Vitals Vital Signs Date Time Temp Pulse Resp B/P (MAP) Pulse Ox O2 Delivery O2 Flow Rate FiO2 09/17/24 07:56 61 14 98 Room Air* 0 21 09/17/24 07:53 97.8 124/85 (98) 97.8 General Appearance: Alert, Oriented X3, Cooperative, No acute distress HEENT: Atraumatic Lungs: Clear to auscultation, Normal air movement Cardiovascular: Regular rate, Normal S1, Normal S2 Abdomen: Normal bowel sounds, Soft, No tenderness Extremities: No edema Neuro: Normal gait, Normal speech, Strength at 5/5 X4 ext, Normal tone, S ensation intact, Reflexes 2+, Other (Diplopia upon upgaze) Psych/Mental Status: Mental status NL, Mood NL Medications Current Medications Medications Dose Ordered Sig/Jose Route Start Time Stop Time Status Last Admin Dose Admin Lisinopril 20 mg DAILY PO 09/17/24 10:00 Atorvastatin Calcium 20 mg HS PO 09/17/24 22:00 Sodium Chloride 10 ml Q8HR IV 09/17/24 06:00 09/17/24 04:49 10 ML Acetaminophen/ Hydrocodone Bitart 1 tab Q4HP PRN PO 09/16/24 23:45 Ondansetron HCl 4 mg Q4HP PRN IV 09/16/24 23:45 Docusate Sodium 100 mg BIDPRN PRN PO 09/16/24 23:45 Acetaminophen 650 mg Q6HP PRN PO 09/16/24 23:45 Nitroglycerin 0.4 mg Q5MINP PRN SL 09/17/24 00:00 Morphine Sulfate 2 mg Q30M PRN IV 09/17/24 00:00 Laboratory Results Laboratory Tests 09/17/24 03:14 Chemistry Test 09/16/24 22:07 09/17/24 03:14 Calcium Level 10.2 mg/dL (8.7-10.4) 10.0 mg/dL (8.7-10.4) Albumin 4.7 g/dL (3.2-4.8) Total Protein 7.4 g/dL (5.7-8.2) LFT Test 09/17/24 03:14 Alanine Aminotransferase (ALT) 36 U/L (7-40) Alkaline Phosphatase 79 U/L (46-116) Aspartate Amino Transferase (AST) 37 U/L (<34) H Total Bilirubin 1.3 mg/dL (0.2-1.0) H Urinalysis Test 09/17/24 03:05 Urine Color Light-yellow (Yellow) Urine Clarity Clear (Clear) Urine pH 5.5 (5.0-9.0) Urine Specific [place] 1.018 (1.001-1.035) Urine Protein Negative (Negative) Urine Ketones 2+ (Negative) H Urine Blood Negative /uL (Negative) Urine Nitrite Negative (Negative) Urine Bilirubin Negative (Negative) Urine Urobilinogen Normal mg/dL (Negative) Urine Leukocyte Esterase Negative /uL (Negative) Urine RBC <1 /hpf (0 - 3) Urine Microscopic WBC < 1 /HPF (0-3) Urine Squamous Epithelial Cells None seen /hpf (<5) Urine Bacteria None seen /hpf (None Seen) Urine Glucose Normal mg/dL (Normal) Labs and/or images reviewed: Labs reviewed by me, Image(s) reviewed by me Assessment/Plan Assessment/Plan A 39-year-old male patient; with essential hypertension, marijuana use disorder, and morbid obesity; who presented to the emergency department with slurred speech, decreased vision in the left eye, and severe headache. #Suspected acute stroke; slurred speech back to normal; vision is back to normal and left eye; decreasing severity of headaches; diplopia upon upgaze on exam; head CT without contrast showed no acute abnormalities; neurology consulted; telemetry; continue aspirin and statin; continue pain management for headaches as indicated; continue monitoring #Hypertensive heart disease without heart failure; continue antihypertensive medications and adjust according to blood pressure measurements; continue monitoring #Marijuana use disorder; counseled marijuana use cessation for 16 minutes #Morbid obesity; counseled importance of adopting healthy lifestyle with diet and exercise in order to lose weight; continue monitoring Goals of care discussed with the patient for 20 minutes; full code Late Entry. This medical document was created using an electronic medical record system with computerized dictation system. Although this document has been carefully reviewed, there might still be some phonetic and typographical errors. These areas are purely typographical due to imperfections of the software programs, and do not reflect any compromise in the patient's medical care. Plan discussed with: Patient, Other (Nurse) Date of Service: Sep 17, 2024 Billing Provider: KULWANT WILKINSON MD Common Visit Codes: 34740-[id number] INP/OBS CARE(HIGH) Secondary Visit Codes: 37763-FPEFF CHNG SMOKING >10MIN (16 minutes for marijuana use cessation), [id number] CARE PLAN 30 MINUTES (20 minutes) KULWANT WILKINSON MD Sep 17, 2024 09:16
[2024-09-17] MEDS: LISINOPRIL 20 MG TAB PO SCH (11:41)
--- NOTE | 2024-09-17 20:20 | DVHINCON2 ---
Date of service: Sep 17, [address] Griffin Reason for Consultation Headache with a suspected TIA, still with diplopia, History of Present Illness Mr. Tovar is a 39 years old right-handed gentleman with a history of hypertension, dyslipidemia, obesity, chronic low back pain, spinal spondylosis, he came to the [facility] on 09/16/2024 with a chief complaint of left sided headache, at that time, he is alert and fully oriented, he provided the following history Around , he developed progressive mild left-sided aching headache, 3- 4/10, the headache became 10/10 on 09/16/2024, meanwhile he also noticed that he could not see object on his right side, he also had brief left mouth: Numbness on 09/16/2024, but he denies associated extremity weakness numbness, today the vision disturbance has recovered When he is going through physical examination with one doctor, he had double vision when he gazes to the left side Has not had similar problems previously, he denies a history of stroke He does not know if he snores, he only needs 5 hours sleep, he has good energy on waking up and throughout the day, but as a compressed air pile driver operator, 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 If clinical symptoms persist, MRI may be beneficial in further assessmen MRI head, 09/03/2022: No acute infarct, intracranial hemorrhage, mass effect, or hydrocephalus. Past Medical History Hypertension, dyslipidemia, obesity, chronic low back pain, spinal spondylosis Past Surgical History None Family History: Diabetes mellitus G8 MOTHER G8 FATHER FH: cancer Hypertension G8 MOTHER G8 FATHER Family History Hypertension, diabetes, heart disease, stroke in the age of 50s, cancer Social History He was tobacco smoke, but he denies a history of drug or alcohol abuse Allergies: Coded Allergies: NO KNOWN ALLERGIES (Unverified , 09/22/11) Home Meds Reported Medications Atorvastatin Calcium (ATORVASTATIN CALCIUM) 20 Mg Tab, 1 TAB PO DAILY 09/02/22 Lisinopril (Lisinopril) 40 Mg Tab, 1 TAB PO DAILY 09/02/22 Current Medications Current Medications Medications (Trade) Dose Ordered Sig/Ojse Route PRN Reason Start Time Stop Time Status Last Admin Lisinopril (Zestril Tablet) 20 mg DAILY PO 09/17/24 10:00 09/17/24 11:41 Atorvastatin Calcium (Lipitor) 20 mg HS PO 09/17/24 22:00 Sodium Chloride (Saline Lock Ns) 10 ml Q8HR IV 09/17/24 06:00 09/17/24 14:18 Acetaminophen/ Hydrocodone Bitart ([place] 5/325MG Tab) 1 tab Q4HP PRN PO MODERATE PAIN (4-6 PAIN SCALE) 09/16/24 23:45 Ondansetron HCl (Zofran) 4 mg Q4HP PRN IV NAUSEA / VOMITING 09/16/24 23:45 Docusate Sodium (Colace Capsule) 100 mg BIDPRN PRN PO FOR CONSTIPATION 09/16/24 23:45 Acetaminophen (Tylenol Tablet) 650 mg Q6HP PRN PO PAIN SCALE 1-3 OR TEMP>100.4 09/16/24 23:45 Nitroglycerin (Ntrostat Sublingual) 0.4 mg Q5MINP PRN SL FOR CHEST PAIN 09/17/24 00:00 Morphine Sulfate 2 mg Q30M PRN IV FOR CHEST PAIN 09/17/24 00:00 Review of Systems As above, the other systems are negative Vital Signs Vital Signs Date Time Temp Pulse Resp B/P (MAP) Pulse Ox O2 Delivery O2 Flow Rate FiO2 09/17/24 12:00 97.6 69 12 117/80 (92) 97 97.6 09/17/24 07:56 Room Air* 0 21 Physical Exam GENERAL EXAM: General: the patient is well developed and nourished. No acute distress. HEENT: Normocephalic, tenderness to palpation in the left scalp, worse in the parietal occipital region, mild in the temporal head region. Mild symmetric erythema in bilateral temporal head region, no edema, no swelling, no permanent vasculature. Neck is supple, no carotid bruits. No mass. RESPIRATORY: Normal respiratory effort with symmetrical lung expansion. Lungs clear to auscultation. CARDIOVASCULAR: Regular rate and rhythm with no murmurs. S1, S2. ABDOMEN: Soft, nontender, normal bowel sound NEUROLOGICAL: MENTAL STATUS: Awake and alert. Oriented to person, place, time and general circumstances. Able to give personal history. The patient is aware of recent events SPEECH, LANGUAGE, HIGHER CORTICAL FUNCTION: no aphasia or dysathria. CRANIAL NERVES: #2: Intact visual ely to confrontation. The optic discs were sharp. Retinal background was uniformly pink in appearance. There was no hemorrhages or exudates. #3,4,6: Pupils are equal, round and reactive. EOMs full and conjugate. Mild bilateral gaze evoked nystagmus. #5: Facial sensation intact in all three divisions bilaterally. Mandibular stre ngth intact. #7: Facial muscles symmetrical and strength intact. #8: Hearing grossly normal to voice. #9,10: Uvula and soft palate rise in the midline. Swallow and voice are normal. #11: Trapezius and sternomastoid strength intact bilaterally. #12: Tongue midline. No fasciculations or atrophy. SENSATION: Sensation to touch and pinprick is normal. MOTOR: Normal tone in the upper and lower extremity. Normal muscle bulk. No fasciculations. No abnormal movements or posturing. Muscle strength of the major groups in the upper extremities is 5/5. Muscle strength of the major groups in the lower extremities is 5/5. REFLEXES: Deep tendon reflexes normal and symmetrical. No pathological reflexes. CEREBELLAR/COORDINATION: Finger to nose and heel to diggs are normal bilaterally. GAIT/STATION: deferred. Labs/Diagnostic Data Labs Test 09/17/24 03:14 09/17/24 03:05 09/16/24 22:51 Range/Units White Blood Count 9.2 4.4-10.8 10^3/uL Red Blood Count 5.02 4.5-5.90 10^6/uL Hemoglobin 16.2 13.5-17.5 g/dL Hematocrit 46.8 41.0-53.0 % Mean Corpuscular Volume 93.3 80.0-100.0 fL Mean Corpuscular Hemoglobin 32.3 H 28.0-32.0 pg Mean Corpuscular Hemoglobin Concent 34.6 32.0-36.0 g/dL Red Cell Distribution Width 13.8 11.8-14.3 % Platelet Count 227 140-450 10^3/uL Mean Platelet Volume 9.3 6.9-10.8 fL Neutrophils (%) (Auto) 52.5 37.0-80.0 % Lymphocytes (%) (Auto) 35.1 10.0-50.0 % Monocytes (%) (Auto) 8.7 0.0-12.0 % Eosinophils (%) (Auto) 3.2 0.0-7.0 % Basophils (%) (Auto) 0.5 0.0-2.0 % Neutrophils # (Auto) 4.9 1.6-8.6 10 ^3/uL Lymphocytes # (Auto) 3.2 0.4-5.4 10 ^3/uL Monocytes # (Auto) 0.8 0-1.3 10 ^3/uL Eosinophils # (Auto) 0.3 0-0.8 10 ^3/uL Basophils # (Auto) 0 0-0.2 10 ^3/uL Nucleated Red Blood Cells 0.0 % Sodium Level 141 136-145 mmol/L Potassium Level 4.0 3.5-5.1 mmol/L Chloride Level 105 98-107 mmol/L Carbon Dioxide Level 27 20-31 mmol/L Anion Gap 9 5-15 Blood Urea Nitrogen 13 9-23 mg/dL Creatinine 1.12 0.700-1.30 mg/dL Glomerular Filtration Rate Calc 85 >90 mL/min BUN/Creatinine Ratio 11.6 10.0-20.0 Serum Glucose 86 74-106 mg/dL Calcium Level 10.0 8.7-10.4 mg/dL Total Bilirubin 1.3 H 0.2-1.0 mg/dL Aspartate Amino Transferase (AST) 37 H <34 U/L Alanine Aminotransferase (ALT) 36 7-40 U/L Alkaline Phosphatase 79 46-116 U/L Total Protein 7.4 5.7-8.2 g/dL Albumin 4.7 3.2-4.8 g/dL Urine Color Light-yellow Yellow Urine Clarity Clear Clear Urine pH 5.5 5.0-9.0 Urine Specific [place] 1.018 1.001-1.035 Urine Protein Negative Negative Urine Ketones 2+ H Negative Urine Blood Negative Negative /uL Urine Nitrite Negative Negative Urine Bilirubin Negative Negative Urine Urobilinogen Normal Negative mg/dL Urine Leukocyte Esterase Negative Negative /uL Urine RBC <1 0 - 3 /hpf Urine Microscopic WBC < 1 0-3 /HPF Urine Squamous Epithelial Cells None seen <5 /hpf Urine Bacteria None seen None Seen /hpf Urine Glucose Normal Normal mg/dL Troponin I High Sensitivity 5 </=54 ng/L Assessment Vision disturbance, he likely had right homonymous hemianopsia, need to rule out acute stroke Double vision evoked by left gazing, to rule out acute stroke Left scalp tenderness, rule out temporal arteritis Obesity Plan/Recommendation Monitoring Supportive treatment Telemetry ESR CRP UDS Lipitor profile MATHEW Carotid Doppler MR head Lipitor 20 mg daily Aspirin 81 mg daily More recommendation per clinical course This medical document was created using an electronic medical record system with Backchat computerized dictation system. Although this document has been carefully reviewed, there may still be some phonetic and typographical errors. These areas are purely typographical due to imperfections of the software programs, and do not reflect any compromise in the patient's medical care. Plan discussed with: Patient, Other MICHAELA GALEANO MD Sep 17, 2024 20:20
[2024-09-17] MEDS ORDERED: LORazepam 2MG/ML-1ML VIAL IV PRN (22:15)
[2024-09-17] MEDS: ATORVASTATIN 20 MG TAB PO SCH (22:28)
[2024-09-17] MEDS: ASPirin 81 mg TAB PO ONE (22:30)
[2024-09-17 22:50] LABS: CRP High Sensitivity 0.11 mg/dL (<1.0)
[2024-09-17 22:51] LABS: Cannabinoid Screen, Urine Pos (NEGATIVE); Opiate Scree,Urine Neg (NEGATIVE)
[2024-09-17 22:54] LABS: Amphetamine Screen, Urine Neg (NEGATIVE); Barbiturate Scree,Urine Neg (NEGATIVE); Benzodiazephine Screen, Urine Neg (NEGATIVE); Cocaine Screen, Urine Neg (NEGATIVE); Phencyclidine Screen, Urine Neg (NEGATIVE)
[2024-09-17 23:53] LABS: Erythrocyte Sedimentation Rate 2 mm/hr (0-20)
[2024-09-18] VITALS (13 sets, daily range): BP systolic 100–131; BP diastolic 58–83; PULSE 62–90; RESP 17–20; TEMP 97.3–97.8; O2SAT 97–99
[2024-09-18] MEDS: ASPirin 81 mg TAB PO SCH (08:59)
[2024-09-18 09:05] LABS: Basophils # (auto) 0 10 ^3/uL (0-0.2); Basophils % (auto) 0.5 % (0.0-2.0); Eosinophils # (auto) 0.3 10 ^3/uL (0-0.8); Eosinophils % (auto) 4.6 % (0.0-7.0); Hematocrit 46.4 % (41.0-53.0); Hemoglobin 16.2 g/dL (13.5-17.5); Lymphocytes # (auto) 2.1 10 ^3/uL (0.4-5.4); Lymphocytes % (auto) 28.5 % (10.0-50.0); Mean Corpuscular Hemoglobin 32.5 pg (28.0-32.0); Mean Corpuscular Hgb Conc. 34.9 g/dL (32.0-36.0); Monocytes # (auto) 0.8 10 ^3/uL (0-1.3); Monocytes % (auto) 10.4 % (0.0-12.0); Nucleated Red Blood Cells % 0.1 %; Platelet Count (auto) 224 10^3/uL (140-450); Red Blood Cells 4.98 10^6/uL (4.5-5.90); Red Cell Distribution Width 13.4 % (11.8-14.3); White Blood Cell 7.2 10^3/uL (4.4-10.8)
[2024-09-18 09:18] LABS: Alanine Aminotransferase 37 U/L (7-40); Albumin 4.3 g/dL (3.2-4.8); Alkaline Phosphatase 72 U/L (46-116); Anion Gap 10 (5-15); Aspartate Aminotransferase 28 U/L (<34); BUN/Creatinine Ratio 12.5 (10.0-20.0); Blood Urea Nitrogen 12 mg/dL (9-23); Calcium 9.7 mg/dL (8.7-10.4); Carbon Dioxide 26 mmol/L (20-31); Chloride 106 mmol/L (98-107); Glucose 84 mg/dL (74-106); Potassium 3.8 mmol/L (3.5-5.1); Sodium 142 mmol/L (136-145); Total Protein 6.8 g/dL (5.7-8.2)
[2024-09-18 09:24] LABS: Bilirubin, Total 1.4 mg/dL (0.2-1.0)
--- NOTE | 2024-09-18 13:12 | DVHPN2 ---
Subjective No headaches; normal speech and vision Reviewed: Care Plan, H&P, Labs, Medications, Previous Orders, Radiology, Other (Consultation) Changes from previous H/P or p: Changes Objective Vitals Vital Signs Date Time Temp Pulse Resp B/P (MAP) Pulse Ox O2 Delivery O2 Flow Rate FiO2 09/18/24 12:10 97.8 63 17 120/80 (93) 99 97.8 09/18/24 07:44 Room Air* 0 21 Intake/Output Intake and Output 09/18/24 07:00 Intake Total 400 ml Balance 400 ml Intake Oral 400 ml # Voids 2 General Appearance: Alert, Oriented X3, Cooperative, No acute distress HEENT: Atraumatic Lungs: Clear to auscultation, Normal air movement Cardiovascular: Regular rate, Normal S1, Normal S2 Abdomen: Normal bowel sounds, Soft, No tenderness Extremities: No edema Neuro: Normal gait, Normal speech, Strength at 5/5 X4 ext, Normal tone, S ensation intact, Reflexes 2+, Other (Diplopia upon upgaze) Psych/Mental Status: Mental status NL, Mood NL Medications Current Medications Medications Dose Ordered Sig/Jose Route Start Time Stop Time Status Last Admin Dose Admin Lisinopril 20 mg DAILY PO 09/17/24 10:00 09/18/24 08:58 20 MG Atorvastatin Calcium 20 mg HS PO 09/17/24 22:00 09/17/24 22:28 20 MG Sodium Chloride 10 ml Q8HR IV 09/17/24 06:00 09/18/24 05:50 10 ML Acetaminophen/ Hydrocodone Bitart 1 tab Q4HP PRN PO 09/16/24 23:45 Ondansetron HCl 4 mg Q4HP PRN IV 09/16/24 23:45 Docusate Sodium 100 mg BIDPRN PRN PO 09/16/24 23:45 Acetaminophen 650 mg Q6HP PRN PO 09/16/24 23:45 Nitroglycerin 0.4 mg Q5MINP PRN SL 09/17/24 00:00 Morphine Sulfate 2 mg Q30M PRN IV 09/17/24 00:00 Lorazepam 1 mg ONCE PRN IV 09/17/24 22:15 Aspirin 81 mg DAILY PO 09/18/24 10:00 09/18/24 08:59 81 MG Laboratory Results Laboratory Tests 09/18/24 08:31 Chemistry Test 09/18/24 08:31 Albumin 4.3 g/dL (3.2-4.8) Calcium Level 9.7 mg/dL (8.7-10.4) Total Protein 6.8 g/dL (5.7-8.2) LFT Test 09/18/24 08:31 Alanine Aminotransferase (ALT) 37 U/L (7-40) Alkaline Phosphatase 72 U/L (46-116) Aspartate Amino Transferase (AST) 28 U/L (<34) Total Bilirubin 1.4 mg/dL (0.2-1.0) H Urinalysis Test 09/17/24 03:05 Urine Color Light-yellow (Yellow) Urine Clarity Clear (Clear) Urine pH 5.5 (5.0-9.0) Urine Specific [place] 1.018 (1.001-1.035) Urine Protein Negative (Negative) Urine Ketones 2+ (Negative) H Urine Blood Negative /uL (Negative) Urine Nitrite Negative (Negative) Urine Bilirubin Negative (Negative) Urine Urobilinogen Normal mg/dL (Negative) Urine Leukocyte Esterase Negative /uL (Negative) Urine RBC <1 /hpf (0 - 3) Urine Microscopic WBC < 1 /HPF (0-3) Urine Squamous Epithelial Cells None seen /hpf (<5) Urine Bacteria None seen /hpf (None Seen) Urine Glucose Normal mg/dL (Normal) Assessment/Plan Assessment/Plan A 39-year-old male patient; with essential hypertension, marijuana use disorder, and morbid obesity; who presented to the emergency department with slurred speech, decreased vision in the left eye, and severe headache. #Suspected acute stroke; normal speech and normal vision by left eye; no more headaches; still with diplopia upon upgaze; head CT without contrast showed no acute abnormalities; neurology ordered brain MRI and carotid ultrasound; both were done but results are pending; cardiology consulted by neurology for MATHEW; telemetry; continue aspirin and statin; continue pain management for headaches as indicated; lipid profile within normal limits; continue monitoring #Left scalp tenderness; to rule out temporal arteritis as per neurology; inflammatory markers including ESR and CRP within normal limits; continue pain management as indicated; continue monitoring #Hypertensive heart disease without heart failure; continue antihypertensive medications and adjust according to blood pressure measurements; continue monitoring #Elevated ALT and total bilirubin; unclear etiology; ALT back to normal; total bilirubin still elevated but very mildly; avoid hepatotoxic agents; continue monitoring #Leukocytosis; most likely reactive; no signs/symptoms of infection; resolved; continue monitoring #Marijuana use disorder; counseled marijuana use cessation; reviewed drug screen results that showed only marijuana; continue monitoring #Morbid obesity; counseled importance of adopting healthy lifestyle with diet and exercise in order to lose weight; continue monitoring This medical document was created using an electronic medical record system with computerized dictation system. Although this document has been carefully reviewed, there might still be some phonetic and typographical errors. These areas are purely typographical due to imperfections of the software programs, and do not reflect any compromise in the patient's medical care. Plan discussed with: Patient, Other (Nurse) Date of Service: Sep 18, 2024 Billing Provider: KULWANT WILKINSON MD Common Visit Codes: [id number] INP/OBS CARE(HIGH) KULWANT WILKINSON MD Sep 18, 2024 13:12
--- NOTE | 2024-09-18 13:30 | DVHINCON2 ---
Date Seen: Sep 18, 2024 Referring Physician Artem Reason for Consultation Suspected Stroke, Possible MATHEW History of Present Illness 39-year-old male with PMH for HTN, HLD presents to the hospital with headache, vision changes, lightheadedness. Patient states he started to experience left f rontoparietal head pressure/headaches with right peripheral visual changes. Patient was at work when episode happen and was trying to explain to his boss was going on and he had to leave though states he can not get any words out and felt like he was not making sense. Upon presentation in the ER patient's symptoms have improved though continued to have slight visual changes and slight pressure headache especially when leaning forward. Denies chest pain, shortness of breath. Patient states he intermittently gets palpitations. Denies any history of arrhythmias. CT head negative for acute pathology. Troponin negative. Past Medical History As stated above Past Surgical History Denies previous cardiac surgeries Family History: Diabetes mellitus G8 MOTHER G8 FATHER FH: cancer Hypertension G8 MOTHER G8 FATHER Allergies: Coded Allergies: NO KNOWN ALLERGIES (Unverified , 09/22/11) Home Meds Reported Medications Atorvastatin Calcium (ATORVASTATIN CALCIUM) 20 Mg Tab, 1 TAB PO DAILY 09/02/22 Lisinopril (Lisinopril) 40 Mg Tab, 1 TAB PO DAILY 09/02/22 Current Medications Current Medications Medications (Trade) Dose Ordered Sig/Jose Route PRN Reason Start Time Stop Time Status Last Admin Atorvastatin Calcium (Lipitor) 20 mg HS PO 09/17/24 22:00 09/17/24 22:28 Lorazepam (Ativan Inj) 1 mg ONCE PRN IV MRI 09/17/24 22:15 Aspirin 81 mg DAILY PO 09/18/24 10:00 09/18/24 08:59 Review of Systems Constitutional: No: Fever, Chills, Sweats, Weakness, Malaise, Other Eyes: No: Pain, Vision change, Conjunctivae inflammation, Eyelid inflammation, Other, Redness ENT: No: Ear pain, Ear discharge, Nose pain, Nose discharge, Nose congestion, Mouth pain, Mouth swelling, Throat pain, Throat swelling, Other Respiratory: No: Cough, Dry, Shortness of breath, SOB with exertion, Wheezing, Hemoptysis, Pleuritic Pain, Sputum, Wheezing, Other Cardiovascular: ; No: Chest Pain Palpitations, Orthopnea, Paroxysmal Noc. Dyspnea, Edema, Lt Headedness, Other Gastrointestinal: No: Nausea, Vomiting, Abdominal Pain, Diarrhea, Constipation, Melena, Hematochezia, Other Genitourinary: No Dysuria, No Frequency, No Incontinence, No Hematuria, No Retention, No Other Musculoskeletal: neck pain; No: other, shoulder pain, arm pain, back pain, hand pain, leg pain, foot pain Skin: No: Rash, Lesions, Jaundice, Bruising, Other Neurological: Other (Dizziness, headache.); No: Weakness, Numbness, Incoordination, Change in speech, Confusion, Seizures Vital Signs Vital Signs Date Time Temp Pulse Resp B/P (MAP) Pulse Ox O2 Delivery O2 Flow Rate FiO2 09/18/24 12:10 97.8 63 17 120/80 (93) 99 97.8 09/18/24 07:44 Room Air* 0 21 Physical Exam General appearance: Patient is well-developed, well-nourished, in no acute distress. HEENT: Exam shows: Normocephalic, atraumatic, PERRLA, EOMI Neck: Supple, no bruits Chest: Equal chest excursion bilaterally. Breath sounds normal-no rales or wheezes. Heart: Rhythm: Regular rate; no murmur or gallop Abdomen: Exam shows: Soft, nontender, nondistended Musculoskeletal: No clubbing, no cyanosis, no lower extremity edema Dermatology: Skin warm, moist. Neurological: Exam shows: Alert and oriented x4, normal speech Available prior records, labs, EKG, rhythm strips reviewed and interpreted Labs/Diagnostic Data Labs Test 09/18/24 08:31 09/17/24 03:14 09/17/24 03:05 09/16/24 22:51 Range/Units White Blood Count 7.2 4.4-10.8 10^3/uL Red Blood Count 4.98 4.5-5.90 10^6/uL Hemoglobin 16.2 13.5-17.5 g/dL Hematocrit 46.4 41.0-53.0 % Mean Corpuscular Volume 93.0 80.0-100.0 fL Mean Corpuscular Hemoglobin 32.5 H 28.0-32.0 pg Mean Corpuscular Hemoglobin Concent 34.9 32.0-36.0 g/dL Red Cell Distribution Width 13.4 11.8-14.3 % Platelet Count 224 140-450 10^3/uL Mean Platelet Volume 9.4 6.9-10.8 fL Neutrophils (%) (Auto) 56.0 37.0-80.0 % Lymphocytes (%) (Auto) 28.5 10.0-50.0 % Monocytes (%) (Auto) 10.4 0.0-12.0 % Eosinophils (%) (Auto) 4.6 0.0-7.0 % Basophils (%) (Auto) 0.5 0.0-2.0 % Neutrophils # (Auto) 4.0 1.6-8.6 10 ^3/uL Lymphocytes # (Auto) 2.1 0.4-5.4 10 ^3/uL Monocytes # (Auto) 0.8 0-1.3 10 ^3/uL Eosinophils # (Auto) 0.3 0-0.8 10 ^3/uL Basophils # (Auto) 0 0-0.2 10 ^3/uL Nucleated Red Blood Cells 0.1 % Sodium Level 142 136-145 mmol/L Potassium Level 3.8 3.5-5.1 mmol/L Chloride Level 106 98-107 mmol/L Carbon Dioxide Level 26 20-31 mmol/L Anion Gap 10 5-15 Blood Urea Nitrogen 12 9-23 mg/dL Creatinine 0.96 0.700-1.30 mg/dL Glomerular Filtration Rate Calc 102 >90 mL/min BUN/Creatinine Ratio 12.5 10.0-20.0 Serum Glucose 84 74-106 mg/dL Calcium Level 9.7 8.7-10.4 mg/dL Total Bilirubin 1.4 H 0.2-1.0 mg/dL Aspartate Amino Transferase (AST) 28 <34 U/L Alanine Aminotransferase (ALT) 37 7-40 U/L Alkaline Phosphatase 72 46-116 U/L Total Protein 6.8 5.7-8.2 g/dL Albumin 4.3 3.2-4.8 g/dL Erythrocyte Sedimentation Rate 2 0-20 mm/hr C-Reactive Protein High Sensitivity 0.11 <1.0 mg/dL Triglycerides Level 119 < 150 mg/dL Cholesterol Level 138 < 200 mg/dL LDL Cholesterol 76 < 100 mg/dL HDL Cholesterol 50 40-59 mg/dL Urine Color Light-yellow Yellow Urine Clarity Clear Clear Urine pH 5.5 5.0-9.0 Urine Specific [place] 1.018 1.001-1.035 Urine Protein Negative Negative Urine Ketones 2+ H Negative Urine Blood Negative Negative /uL Urine Nitrite Negative Negative Urine Bilirubin Negative Negative Urine Urobilinogen Normal Negative mg/dL Urine Leukocyte Esterase Negative Negative /uL Urine RBC <1 0 - 3 /hpf Urine Microscopic WBC < 1 0-3 /HPF Urine Squamous Epithelial Cells None seen <5 /hpf Urine Bacteria None seen None Seen /hpf Urine Glucose Normal Normal mg/dL Urine Opiates Screen Neg NEGATIVE Urine Fentanyl Screen Neg NEGATIVE Urine Barbiturates Screen Neg NEGATIVE Urine Phencyclidine Screen Neg NEGATIVE Urine Amphetamines Screen Neg NEGATIVE Urine Benzodiazepines Screen Neg NEGATIVE Urine Cocaine Screen Neg NEGATIVE Urine Cannabinoids Screen Pos NEGATIVE Troponin I High Sensitivity 5 </=54 ng/L Assessment * Suspected Stroke - ST negative, MRI pending. Not a candidate for MATHEW at [facility] time, will await MRI results. Continue tele monitoring. Check TTE. On asprini and statin * HTN - recommend hold BP meds for permissive HTN until clered by neurology. * HLD - statin. * Palpitations - continue telemetry monitoring. Check TSH. If no significant arrhythmias noted while inpatient recommend outpatient follow up for event monitoring. Case Discussed with Dr Fournier. Follow up echo, continue telemetry monitoring for arrhythmias. No indication for MATHEW at this time, if MRI positive we will reconsider. Critical care, time spent: 38 minutes This medical document was created using an electronic medical record system with voice recognition software and computerized dictation system. Although this document has been carefully reviewed, there might still be some phonetic and typographical errors. Occasional wrong-word or ``sound-alike substitutions may have occurred due to the inherent limitations of voice recognition software. These areas are purely typographical due to imperfections of the software programs and do not reflect any compromise in the patient's medical care. Please read the chart carefully and recognize, using context, where these substitutions have occurred. Thank you for allowing me to participate in the management of this patient. The treatment plan was discussed with and agreed upon by patient/family including requesting consultants and ordering of imaging/procedures. Plan discussed with: Patient NYHA Physical activity limitations: NA Date of Service: Sep 18, 2024 Billing Provider: LUCIANA BOYER [facility] Cardiology Common Codes: 90174-[id number] INP/OBS CARE (High), 51100-[id number] CARE 30-[address] [facility] Sep 18, 2024 13:30
--- NOTE | 2024-09-18 13:59 | DVH ---
EXAM: MRI BRAIN HEAD WO CONTRAST CLINICAL HISTORY: cva COMPARISON: MRI BRAIN HEAD WO CONTRAST on DOS: 09/03/22 TECHNIQUE: Multiplanar, multisequence magnetic resonance imaging of the brain was performed without intravenous contrast. FINDINGS: Normal brain volume and formation. No hemorrhages, masses, mass effect, midline shift, herniation or cytotoxic edema following large vas cular territory. No intra-axial or extra-axial fluid collections. No evidence of hydrocephalus. The basal cisterns are patent. The vascular flow voids are maintained. The pituitary gland, sella and parasellar regions unremarkable. The cerebellar tonsils are normal pos ition. The cerebellum is unremarkable. The orbits and globes are unremarkable. Mild mucoperiosteal thickening of the ethmoid air cells and l eft maxillary sinus. The remainder of the paranasal sinuses and mastoids are clear. There are No wo rrisome calvarial lesions. IMPRESSION: No evidence of acute intracranial abnormalities.
--- NOTE | 2024-09-18 14:42 | DVH ---
US CAROTID DOPPLER CLINICAL INDICATION: cva TECHNIQUE: Multiple grayscale, color Doppler and spectral Doppler ultrasound images were obtained thr oughout both carotid systems. COMPARISON: US CAROTID DUPLX W COLOR DOP on DOS: 09/02/22 FINDINGS: RIGHT: CCA PSV: 74 cm/s ECA PSV: 70 cm/s ICA PSV: 97 cm/s ICA EDV: 40 cm/s ICA/CCA Ratio: 1.3 Vertebral artery: Patent, antegrade flow. Grayscale images demonstrate no significant plaque or visible stenosis. Spectral analysis demonstrate s no hemodynamically significant CCA or ICA stenosis. LEFT: CCA PSV: 78 cm/s ECA PSV: 107 cm/s ICA PSV: 97 cm/s ICA EDV: 35 cm/s ICA/CCA Ratio: 1.2 Vertebral artery: Patent, antegrade flow. Grayscale images demonstrate no significant plaque or visible stenosis. Spectral analysis demonstrate s no hemodynamically significant CCA or ICA stenosis. IMPRESSION: Normal carotid ultrasound without evidence of hemodynamically significant CCA or ICA stenosis.
--- NOTE | 2024-09-18 16:09 | DVHINCON2 ---
Date Seen: Sep 18, 2024 Referring Physician Artem Reason for Consultation Suspected Stroke, Possible MATHEW History of Present Illness This is a 39-year-old male with a PMH of HTN, HLD who presented to the ED with complaints of a headache with associated vision changes and lightheadedness. Patient states he started to experience left frontoparietal head pressure/headaches with right peripheral visual changes. Patient was at work when this episode happened and was trying to explain to his boss what was going on and he had to leave though he states he can not get any words out and felt like he was not making sense. Upon presentation in the ED patient's symptoms have improved though continued to have slight visual changes and slight pressure headache especially when leaning forward. Denies chest pain, shortness of breath. Patient states he intermittently gets heart palpitations. Denies any history of arrhythmias. CT head negative for acute pathology. Troponin negative. Chest x-ray shows NAD. Carotid Doppler is unremarkable. Patient was admitted to the hospital. I am asked to consult on this patient. Past Medical History As stated above Past Surgical History Denies previous cardiac surgeries Family History: Diabetes mellitus G8 MOTHER G8 FATHER FH: cancer Hypertension G8 MOTHER G8 FATHER Allergies: Coded Allergies: NO KNOWN ALLERGIES (Unverified , 09/22/11) Home Meds Reported Medications Atorvastatin Calcium (ATORVASTATIN CALCIUM) 20 Mg Tab, 1 TAB PO DAILY 09/02/22 Lisinopril (Lisinopril) 40 Mg Tab, 1 TAB PO DAILY 09/02/22 Current Medications Current Medications Medications (Trade) Dose Ordered Sig/Jose Route PRN Reason Start Time Stop Time Status Last Admin Atorvastatin Calcium (Lipitor) 20 mg HS PO 09/17/24 22:00 09/17/24 22:28 Lorazepam (Ativan Inj) 1 mg ONCE PRN IV MRI 09/17/24 22:15 Aspirin 81 mg DAILY PO 09/18/24 10:00 09/18/24 08:59 Review of Systems Constitutional: No: Fever, Chills, Sweats, Weakness, Malaise, Other Eyes: No: Pain, Vision change, Conjunctivae inflammation, Eyelid inflammation, Other, Redness ENT: No: Ear pain, Ear discharge, Nose pain, Nose discharge, Nose congestion, Mouth pain, Mouth swelling, Throat pain, Throat swelling, Other Respiratory: No: Cough, Dry, Shortness of breath, SOB with exertion, Wheezing, Hemoptysis, Pleuritic Pain, Sputum, Wheezing, Other Cardiovascular: ; No: Chest Pain Palpitations, Orthopnea, Paroxysmal Noc. Dyspnea, Edema, Lt Headedness, Other Gastrointestinal: No: Nausea, Vomiting, Abdominal Pain, Diarrhea, Constipation, Melena, Hematochezia, Other Genitourinary: No Dysuria, No Frequency, No Incontinence, No Hematuria, No Retention, No Other Musculoskeletal: neck pain; No: other, shoulder pain, arm pain, back pain, hand pain, leg pain, foot pain Skin: No: Rash, Lesions, Jaundice, Bruising, Other Neurological: Other (Dizziness, headache.); No: Weakness, Numbness, Incoordination, Change in speech, Confusion, Seizures Vital Signs Vital Signs Date Time Temp Pulse Resp B/P (MAP) Pulse Ox O2 Delivery O2 Flow Rate FiO2 09/18/24 13:00 97.8 63 17 120/80 (93) 99 97.8 09/18/24 07:44 Room Air* 0 21 Physical Exam GENERAL: Alert and oriented x 3. No acute distress. EYES: PERRL, EOMI. Anicteric. HENT: Moist mucous membranes. LUNGS: Clear to auscultation bilaterally. CARDIOVASCULAR: Regular rate and rhythm. ABDOMEN: Soft, nontender and nondistended. EXTREMITIES: No edema. NEUROLOGIC: No focal neurological deficits. SKIN: Warm, dry. Labs/Diagnostic Data Labs Test 09/18/24 08:31 09/17/24 03:14 09/17/24 03:05 09/16/24 22:51 Range/Units White Blood Count 7.2 4.4-10.8 10^3/uL Red Blood Count 4.98 4.5-5.90 10^6/uL Hemoglobin 16.2 13.5-17.5 g/dL Hematocrit 46.4 41.0-53.0 % Mean Corpuscular Volume 93.0 80.0-100.0 fL Mean Corpuscular Hemoglobin 32.5 H 28.0-32.0 pg Mean Corpuscular Hemoglobin Concent 34.9 32.0-36.0 g/dL Red Cell Distribution Width 13.4 11.8-14.3 % Platelet Count 224 140-450 10^3/uL Mean Platelet Volume 9.4 6.9-10.8 fL Neutrophils (%) (Auto) 56.0 37.0-80.0 % Lymphocytes (%) (Auto) 28.5 10.0-50.0 % Monocytes (%) (Auto) 10.4 0.0-12.0 % Eosinophils (%) (Auto) 4.6 0.0-7.0 % Basophils (%) (Auto) 0.5 0.0-2.0 % Neutrophils # (Auto) 4.0 1.6-8.6 10 ^3/uL Lymphocytes # (Auto) 2.1 0.4-5.4 10 ^3/uL Monocytes # (Auto) 0.8 0-1.3 10 ^3/uL Eosinophils # (Auto) 0.3 0-0.8 10 ^3/uL Basophils # (Auto) 0 0-0.2 10 ^3/uL Nucleated Red Blood Cells 0.1 % Sodium Level 142 136-145 mmol/L Potassium Level 3.8 3.5-5.1 mmol/L Chloride Level 106 98-107 mmol/L Carbon Dioxide Level 26 20-31 mmol/L Anion Gap 10 5-15 Blood Urea Nitrogen 12 9-23 mg/dL Creatinine 0.96 0.700-1.30 mg/dL Glomerular Filtration Rate Calc 102 >90 mL/min BUN/Creatinine Ratio 12.5 10.0-20.0 Serum Glucose 84 74-106 mg/dL Calcium Level 9.7 8.7-10.4 mg/dL Total Bilirubin 1.4 H 0.2-1.0 mg/dL Aspartate Amino Transferase (AST) 28 <34 U/L Alanine Aminotransferase (ALT) 37 7-40 U/L Alkaline Phosphatase 72 46-116 U/L Total Protein 6.8 5.7-8.2 g/dL Albumin 4.3 3.2-4.8 g/dL Erythrocyte Sedimentation Rate 2 0-20 mm/hr C-Reactive Protein High Sensitivity 0.11 <1.0 mg/dL Triglycerides Level 119 < 150 mg/dL Cholesterol Level 138 < 200 mg/dL LDL Cholesterol 76 < 100 mg/dL HDL Cholesterol 50 40-59 mg/dL Urine Color Light-yellow Yellow Urine Clarity Clear Clear Urine pH 5.5 5.0-9.0 Urine Specific [place] 1.018 1.001-1.035 Urine Protein Negative Negative Urine Ketones 2+ H Negative Urine Blood Negative Negative /uL Urine Nitrite Negative Negative Urine Bilirubin Negative Negative Urine Urobilinogen Normal Negative mg/dL Urine Leukocyte Esterase Negative Negative /uL Urine RBC <1 0 - 3 /hpf Urine Microscopic WBC < 1 0-3 /HPF Urine Squamous Epithelial Cells None seen <5 /hpf Urine Bacteria None seen None Seen /hpf Urine Glucose Normal Normal mg/dL Urine Opiates Screen Neg NEGATIVE Urine Fentanyl Screen Neg NEGATIVE Urine Barbiturates Screen Neg NEGATIVE Urine Phencyclidine Screen Neg NEGATIVE Urine Amphetamines Screen Neg NEGATIVE Urine Benzodiazepines Screen Neg NEGATIVE Urine Cocaine Screen Neg NEGATIVE Urine Cannabinoids Screen Pos NEGATIVE Troponin I High Sensitivity 5 </=54 ng/L Assessment Suspected Stroke. HTN. HLD. Heart palpitations. Plan/Recommendation I agree with your ongoing assessment and care of plan. Patient has been seen by Fabrizio Piña NP on my behalf, him and I discussed the plan with the patient. MRI brain pending. No indication for MATHEW at this time, if MRI positive we will reconsider. Continue telemetry monitoring for arrhythmias. Follow up echo. Check TTE. Recommend hold BP meds for permissive HTN until cleared by neurology. Check TSH. Aspirin, Lipitor. Nitro SL. Morphine and [place] for pain management. Additional plan as per the hospital course. Plan discussed with: Patient NYHA Physical activity limitations: NA Date of Service: Sep 18, 2024 Billing Provider: ELIA FITZGERALD MD Cardiology Common Codes: [id number] INP/OBS CARE (High) Cardiology Consultation Codes: [id number]-[id number] CONSULT <45MIN ELIA FITZGERALD MD Sep 18, 2024 14:10
--- NOTE | 2024-09-18 19:12 | DVHPN2 ---
Progress Note - Dictate Date Seen: Sep 18, 2024 Medical Necessity Reason Pt with a Central, PICC or Fol: No Subjective Mr. Tovar is a 39 years old right-handed gentleman with a history of hypertension, dyslipidemia, obesity, chronic low back pain, spinal spondylosis, he came to the [facility] on 09/16/2024 with a chief complaint of left sided headache I have seen and examined the patient, I have discussed with his nurse, he is doing fine, no new company, but on physical examination, he has mild double vision when he looks to the to the upper left upper corner He did not snore last night according to his roommate UDS, 09/17/2024: Cannabinoids Urinalysis, 09/17/2024: Unremarkable CRP, 09/17/24: 0.11 CBC, 09/17/2024: Unremarkable ESR, 09/17/24: 2 BNP, 09/17/2024: Unremarkable TBI/AST/ALT/AP, 09/17/2024: 1.3/37/36/79 TG/HDL/LDL/HDL, 09/17/2024: 119/138/76/50 Carotid Doppler, 09/18/2024: Normal carotid ultrasound without evidence of hemodynamically significant CCA or ICA stenosis. CT head, 09/16/2024: No acute territorial infarct, intracranial hemorrhage, or mass effect. If clinical symptoms persist, MRI may be beneficial in further assessmen MRI head, 09/03/2022: No acute infarct, intracranial hemorrhage, mass effect, or hydrocephalus. MRI head, 09/18/2024: No evidence of acute intracranial abnormalities vital signs Vital Sign Date Time Temp Pulse Resp B/P (MAP) Pulse Ox O2 Delivery O2 Flow Rate FiO2 09/18/24 17:00 97.6 75 17 107/76 (86) 98 97.6 09/18/24 07:44 Room Air* 0 21 Total Intake and Output 09/17/24 09/17/24 09/18/24 15:00 23:00 07:00 Intake Total 400 ml Balance 400 ml medications Current Medications Medications Dose Ordered Sig/Jose Route Start Time Stop Time Status Last Admin Dose Admin Lisinopril 20 mg DAILY PO 09/17/24 10:00 09/18/24 08:58 20 MG Atorvastatin Calcium 20 mg HS PO 09/17/24 22:00 09/17/24 22:28 20 MG Sodium Chloride 10 ml Q8HR IV 09/17/24 06:00 09/18/24 13:45 10 ML Acetaminophen/ Hydrocodone Bitart 1 tab Q4HP PRN PO 09/16/24 23:45 Ondansetron HCl 4 mg Q4HP PRN IV 09/16/24 23:45 Docusate Sodium 100 mg BIDPRN PRN PO 09/16/24 23:45 Acetaminophen 650 mg Q6HP PRN PO 09/16/24 23:45 Nitroglycerin 0.4 mg Q5MINP PRN SL 09/17/24 00:00 Morphine Sulfate 2 mg Q30M PRN IV 09/17/24 00:00 Lorazepam 1 mg ONCE PRN IV 09/17/24 22:15 Aspirin 81 mg DAILY PO 09/18/24 10:00 09/18/24 08:59 81 MG objective General: the patient is well developed and nourished. No acute distress. MENTAL STATUS: Awake and alert. Oriented to person, place, time SPEECH, LANGUAGE, HIGHER CORTICAL FUNCTION: no aphasia or dysathria. CRANIAL NERVES: Pupils are equal, round and reactive. EOMs full and conjugate, but he has mild diplopia when he looks to the upper left corner without associated nystagmus. Facial sensation intact in all three divisions bilaterally. Mandibular strength intact. Facial muscles symmetrical and strength intact. SENSATION: Sensation to touch and pinprick is normal. MOTOR: Normal tone in the upper and lower extremity. Normal muscle bulk. No fasciculations. No abnormal movements or posturing. Muscle strength of the major groups in the extremities is 5/5. REFLEXES: Deep tendon reflexes normal and symmetrical. No pathological reflexes. CEREBELLAR/COORDINATION: Finger to nose and heel to diggs are normal bilaterally. GAIT/STATION: deferred. laboratory and microbiology Laboratory Tests 09/18/24 08:31 Test 09/18/24 08:31 Range/Units Serum Glucose 84 74-106 mg/dL Problem List Vision disturbance, he likely had right homonymous hemianopsia, unremarkable MRI head Double vision evoked by upper left gazing, Obesity Assessment/Plan Monitoring Supportive treatment Telemetry MATHEW Lipitor 10 mg daily Aspirin 81 mg daily Follow up with his counseling center manager JONAS on discharge More recommendation per clinical course This medical document was created using an electronic medical record system with Dragon computerized dictation system. Although this document has been carefully reviewed, there may still be some phonetic and typographical errors. These areas are purely typographical due to imperfections of the software programs, and do not reflect any compromise in the patient's medical care. Prognosis poor Plan discussed with: Patient, Other Total Time (mins): 35 MICHAELA GALEANO MD Sep 18, 2024 19:12
[2024-09-18] MEDS ORDERED: ATORVASTATIN 20 MG TAB PO SCH (19:15)
[2024-09-18] MEDS: ATORVASTATIN 20 MG TAB PO SCH (22:00)
--- NOTE | 2024-09-19 00:35 | DVHSR ---
APPROVED REPORT EXAM: Two-dimensional and M-mode echocardiogram with Doppler, color Doppler and Bubble Study. Blood Pressure: 120/80 mmHg INDICATION Suspected stroke RISK FACTORS Obesity: Height: 5'11", Weight: 253 DIMENSIONS LVDd5.3 (3.8-5.7cm)LA (2D)4.0 (1.9-4.0cm)Aortic Root3.8 (2.0-3.7cm) LVDs3.5 (2.5-4.0cm)LA (MM) (1.9-4.0cm)Aortic Cusp Exc2.1 (1.5-2.0cm) EF (%) 62.0 (55-70%)Rt. Atrium3.9 (1.9-4.0cm)Asc. Aorta cm IVSd1.1 (0.7-1.1cm)RV (D) (1.8-2.4cm) PWd1.1 (0.7-1.1cm) Mitral Valve MitralMitral Stenosis E wave0.63m/sMV Mean GR.mmHg A wave0.56m/sMV Peak GR.mmHg E/A ratio1.12D MVAcm2 DECEL [id number] 1/2 Timems Aortic Valve Aortic ValveAortic Stenosis V10.87m/Brayan Mean GR.4mmHg V21.32m/Brayan Peak GR.7mmHg LVOT Diameter2.5 (1.8-2.4cm)Doppler AVA3.23cm2 Pulmonic Valve V21.35m/s ATRIA Injection of bubbles documented no interatrial shunt. Other Information Technically limited study due to body habitus. Conclusion LV EF IS 65% AND IS NORMAL NORMAL VALVES NORMAL RV FUNCTION AND SIZE NO EFFUSION
[2024-09-19 01:00] VITALS: BP 122/84; PULSE 77; RESP 20; TEMP 97.7; O2SAT 97
[2024-09-19 05:00] VITALS: BP 110/74; PULSE 77; RESP 20; TEMP 97.5; O2SAT 96
[2024-09-19 06:36] LABS: Basophils # (auto) 0 10 ^3/uL (0-0.2); Basophils % (auto) 0.4 % (0.0-2.0); Eosinophils # (auto) 0.3 10 ^3/uL (0-0.8); Eosinophils % (auto) 5.1 % (0.0-7.0); Hemoglobin 15.4 g/dL (13.5-17.5); Lymphocytes # (auto) 2.5 10 ^3/uL (0.4-5.4); Lymphocytes % (auto) 37.9 % (10.0-50.0); Mean Corpuscular Hemoglobin 32.4 pg (28.0-32.0); Mean Corpuscular Volume 92.7 fL (80.0-100.0); Monocytes # (auto) 0.6 10 ^3/uL (0-1.3); Monocytes % (auto) 9.3 % (0.0-12.0); Neutrophils # (auto) 3.1 10 ^3/uL (1.6-8.6); Neutrophils % (auto) 47.3 % (37.0-80.0); Nucleated Red Blood Cells % 0.1 %; Platelet Count (auto) 217 10^3/uL (140-450); Red Blood Cells 4.75 10^6/uL (4.5-5.90); Red Cell Distribution Width 13.5 % (11.8-14.3); White Blood Cell 6.6 10^3/uL (4.4-10.8)
[2024-09-19 08:00] VITALS: PULSE 60
--- NOTE | 2024-09-19 09:37 | DVHPN2 ---
Subjective No headaches; normal speech and vision Reviewed: Care Plan, H&P, Labs, Medications, Previous Orders, Radiology, Other (Consultations) Changes from previous H/P or p: No Changes Objective Vitals Vital Signs Date Time Temp Pulse Resp B/P (MAP) Pulse Ox O2 Delivery O2 Flow Rate FiO2 09/19/24 05:00 97.5 77 20 110/74 (86) 96 97.5 09/18/24 20:00 Room Air* 0 21 Intake/Output Intake and Output 09/19/24 07:00 Intake Total 3200 ml Balance 3200 ml Intake Oral 3200 ml # Voids 3 # Bowel Movements 2 General Appearance: Alert, Oriented X3, Cooperative, No acute distress HEENT: Atraumatic Lungs: Clear to auscultation, Normal air movement Cardiovascular: Regular rate, Normal S1, Normal S2 Abdomen: Normal bowel sounds, Soft, No tenderness Extremities: No edema Neuro: Normal gait, Normal speech, Strength at 5/5 X4 ext, Normal tone, S ensation intact, Reflexes 2+, Other (Diplopia upon left upgaze) Psych/Mental Status: Mental status NL, Mood NL Medications Current Medications Medications Dose Ordered Sig/Jose Route Start Time Stop Time Status Last Admin Dose Admin Lisinopril 20 mg DAILY PO 09/17/24 10:00 09/18/24 08:58 20 MG Sodium Chloride 10 ml Q8HR IV 09/17/24 06:00 09/19/24 05:27 10 ML Acetaminophen/ Hydrocodone Bitart 1 tab Q4HP PRN PO 09/16/24 23:45 Ondansetron HCl 4 mg Q4HP PRN IV 09/16/24 23:45 Docusate Sodium 100 mg BIDPRN PRN PO 09/16/24 23:45 Acetaminophen 650 mg Q6HP PRN PO 09/16/24 23:45 Nitroglycerin 0.4 mg Q5MINP PRN SL 09/17/24 00:00 Morphine Sulfate 2 mg Q30M PRN IV 09/17/24 00:00 Lorazepam 1 mg ONCE PRN IV 09/17/24 22:15 Aspirin 81 mg DAILY PO 09/18/24 10:00 09/18/24 08:59 81 MG Atorvastatin Calcium 20 mg HS PO 09/18/24 20:00 09/18/24 22:02 20 MG Laboratory Results Laboratory Tests 09/18/24 08:31 09/19/24 05:05 Urinalysis Test 09/17/24 03:05 Urine Color Light-yellow (Yellow) Urine Clarity Clear (Clear) Urine pH 5.5 (5.0-9.0) Urine Specific [place] 1.018 (1.001-1.035) Urine Protein Negative (Negative) Urine Ketones 2+ (Negative) H Urine Blood Negative /uL (Negative) Urine Nitrite Negative (Negative) Urine Bilirubin Negative (Negative) Urine Urobilinogen Normal mg/dL (Negative) Urine Leukocyte Esterase Negative /uL (Negative) Urine RBC <1 /hpf (0 - 3) Urine Microscopic WBC < 1 /HPF (0-3) Urine Squamous Epithelial Cells None seen /hpf (<5) Urine Bacteria None seen /hpf (None Seen) Urine Glucose Normal mg/dL (Normal) Labs and/or images reviewed: Labs reviewed by me, Image(s) reviewed by me Assessment/Plan Assessment/Plan A 39-year-old male patient; with essential hypertension, marijuana use disorder, and morbid obesity; who presented to the emergency department with slurred speech, decreased vision in the left eye, and severe headache. #Complex neurological deficits presentation; acute stroke ruled out; most likely due to right homonymous hemianopsia as per Neurology; normal brain MRI, normal head CT, and normal carotid duplex ultrasound; the patient needs to follow up with Ophthalmology as outpatient as soon as possible; will continue with aspirin and statin for now upon discharge; evaluated by Cardiology with TTE that showed no abnormalities with normal ejection fraction; the patient is still with diplopia upon left upgaze; will follow up with discharge clinic with Dr. Wilkinson on Friday in order to get referrals to ophthalmology and neurology #Left scalp tenderness; resolved; temporal arteritis ruled out; inflammatory markers including ESR and CRP within normal limits; will be discharged home #Hypertensive heart disease without heart failure; resume home antihypertensive medication upon discharge; will follow up with primary care provider within two weeks #Elevated ALT and total bilirubin; unclear etiology; ALT back to normal; total bilirubin still elevated but very mildly; avoid hepatotoxic agents; will follow up with the primary care provider within two weeks #Leukocytosis; most likely reactive; no signs/symptoms of infection; resolved; will follow up with the primary care provider within two weeks #Marijuana use disorder; counseled marijuana use cessation; reviewed drug screen results that showed only marijuana; will follow up with the primary care provider within two weeks #Morbid obesity; counseled importance of adopting healthy lifestyle with diet and exercise in order to lose weight; will follow up with primary care provider within two weeks This medical document was created using an electronic medical record system with computerized dictation system. Although this document has been carefully reviewed, there might still be some phonetic and typographical errors. These areas are purely typographical due to imperfections of the software programs, and do not reflect any compromise in the patient's medical care. Plan discussed with: Patient, Other (Nurse) My Orders Orders - KULWANT WILKINSON MD Procedure Category Date Status Time Comprehensive LAB 09/20/24 Verified Metabolic Panel 04:00 Communication Order ORDERS 09/18/24 Transmitted 13:14 Date of Service: Sep 19, 2024 Billing Provider: KULWANT WILKINSON MD Common Visit Codes: [id number] INP/OBS CARE(MOD) KULWANT WILKINSON MD Sep 19, 2024 09:37
[2024-09-19 09:56] VITALS: BP 109/74; PULSE 69; RESP 16; TEMP 97.8; O2SAT 96
[2024-09-19] MEDS ORDERED: ATOR20TA50 PO (10:44)
[2024-09-19] MEDS ORDERED: ASPI-325 PO (10:44)
--- NOTE | 2024-09-19 10:47 | DVHDS2 ---
Discharge Summary Date of Admission Sep 16, 2024 at 23:49 Date of Discharge: Sep 19, 2024 Admitting Diagnosis Headache with decreased vision in left eye along with slurred speech Wounds: None Labs/Diagnostic Data: Laboratory Results Test 09/19/24 05:05 09/18/24 08:31 09/17/24 03:14 09/17/24 03:05 White Blood Count 6.6 10^3/uL (4.4-10.8) Red Blood Count 4.75 10^6/uL (4.5-5.90) Hemoglobin 15.4 g/dL (13.5-17.5) Hematocrit 44.0 % (41.0-53.0) Mean Corpuscular Volume 92.7 fL (80.0-100.0) Mean Corpuscular Hemoglobin 32.4 pg (28.0-32.0) Mean Corpuscular Hemoglobin Concent 35.0 g/dL (32.0-36.0) Red Cell Distribution Width 13.5 % (11.8-14.3) Platelet Count 217 10^3/uL (140-450) Mean Platelet Volume 9.5 fL (6.9-10.8) Neutrophils (%) (Auto) 47.3 % (37.0-80.0) Lymphocytes (%) (Auto) 37.9 % (10.0-50.0) Monocytes (%) (Auto) 9.3 % (0.0-12.0) Eosinophils (%) (Auto) 5.1 % (0.0-7.0) Basophils (%) (Auto) 0.4 % (0.0-2.0) Neutrophils # (Auto) 3.1 10 ^3/uL (1.6-8.6) Lymphocytes # (Auto) 2.5 10 ^3/uL (0.4-5.4) Monocytes # (Auto) 0.6 10 ^3/uL (0-1.3) Eosinophils # (Auto) 0.3 10 ^3/uL (0-0.8) Basophils # (Auto) 0 10 ^3/uL (0-0.2) Nucleated Red Blood Cells 0.1 % Sodium Level 142 mmol/L (136-145) Potassium Level 3.8 mmol/L (3.5-5.1) Chloride Level 106 mmol/L (98-107) Carbon Dioxide Level 26 mmol/L (20-31) Anion Gap 10 (5-15) Blood Urea Nitrogen 12 mg/dL (9-23) Creatinine 0.96 mg/dL (0.700-1.30) Glomerular Filtration Rate Calc 102 mL/min (>90) BUN/Creatinine Ratio 12.5 (10.0-20.0) Serum Glucose 84 mg/dL (74-106) Calcium Level 9.7 mg/dL (8.7-10.4) Total Bilirubin 1.4 mg/dL (0.2-1.0) Aspartate Amino Transferase (AST) 28 U/L (<34) Alanine Aminotransferase (ALT) 37 U/L (7-40) Alkaline Phosphatase 72 U/L (46-116) Total Protein 6.8 g/dL (5.7-8.2) Albumin 4.3 g/dL (3.2-4.8) Thyroid Stimulating Hormone (TSH) 1.20 uIU/mL (0.55-4.78) Erythrocyte Sedimentation Rate 2 mm/hr (0-20) C-Reactive Protein High Sensitivity 0.11 mg/dL (<1.0) Triglycerides Level 119 mg/dL (< 150) Cholesterol Level 138 mg/dL (< 200) LDL Cholesterol 76 mg/dL (< 100) HDL Cholesterol 50 mg/dL (40-59) Urine Color Light-yellow (Yellow) Urine Clarity Clear (Clear) Urine pH 5.5 (5.0-9.0) Urine Specific [place] 1.018 (1.001-1.035) Urine Protein Negative (Negative) Urine Ketones 2+ (Negative) Urine Blood Negative /uL (Negative) Urine Nitrite Negative (Negative) Urine Bilirubin Negative (Negative) Urine Urobilinogen Normal mg/dL (Negative) Urine Leukocyte Esterase Negative /uL (Negative) Urine RBC <1 /hpf (0 - 3) Urine Microscopic WBC < 1 /HPF (0-3) Urine Squamous Epithelial Cells None seen /hpf (<5) Urine Bacteria None seen /hpf (None Seen) Urine Glucose Normal mg/dL (Normal) Urine Opiates Screen Neg (NEGATIVE) Urine Fentanyl Screen Neg (NEGATIVE) Urine Barbiturates Screen Neg (NEGATIVE) Urine Phencyclidine Screen Neg (NEGATIVE) Urine Amphetamines Screen Neg (NEGATIVE) Urine Benzodiazepines Screen Neg (NEGATIVE) Urine Cocaine Screen Neg (NEGATIVE) Urine Cannabinoids Screen Pos (NEGATIVE) Test 09/16/24 22:51 Troponin I High Sensitivity 5 ng/L (</=54) Other Laboratory Tests 09/19/24 05:05 09/18/24 08:31 Brief Hx & Hospital Course: A 39-year-old male patient; with essential hypertension, marijuana use disorder, and morbid obesity; who presented to the emergency department with slurred speech, decreased vision in the left eye, and severe headache. #Complex neurological deficits presentation; acute stroke ruled out; most likely due to right homonymous hemianopsia as per Neurology; normal brain MRI, normal head CT, and normal carotid duplex ultrasound; the patient needs to follow up with Ophthalmology as outpatient as soon as possible; will continue with aspirin and statin for now upon discharge; evaluated by Cardiology with TTE that showed no abnormalities with normal ejection fraction; the patient is still with diplopia upon left upgaze; will follow up with discharge clinic with Dr. Wilkinson on Friday in order to get referrals to ophthalmology and neurology #Left scalp tenderness; resolved; temporal arteritis ruled out; inflammatory markers including ESR and CRP within normal limits; will be discharged home #Hypertensive heart disease without heart failure; resume home antihypertensive medication upon discharge; will follow up with primary care provider within two weeks #Elevated ALT and total bilirubin; unclear etiology; ALT back to normal; total bilirubin still elevated but very mildly; avoid hepatotoxic agents; will follow up with the primary care provider within two weeks #Leukocytosis; most likely reactive; no signs/symptoms of infection; resolved; will follow up with the primary care provider within two weeks #Marijuana use disorder; counseled marijuana use cessation; reviewed drug screen results that showed only marijuana; will follow up with the primary care provider within two weeks #Morbid obesity; counseled importance of adopting healthy lifestyle with diet and exercise in order to lose weight; will follow up with primary care provider within two weeks Physical examination on the day of discharge as documented in the progress note of the day of discharge. This medical document was created using an electronic medical record system with computerized dictation system. Although this document has been carefully reviewed, there might still be some phonetic and typographical errors. These areas are purely typographical due to imperfections of the software programs, and do not reflect any compromise in the patient's medical care. Consults/Reason for consult Neurology for suspected acute stroke; Cardiology for MATHEW as per Neurology Condition at Discharge: Stable Final Diagnosis/Problems List "Vision disturbance, likely right homonymous hemianopsia, unremarkable Brain MRI; Double vision evoked by upper left gazing" as per Neurology Rest of diagnoses as above Discharge Disposition: Home Discharge Instruct/Medications Diet: Cardiac 2g Na,low cholest Activity: No Restrictions, As Tolerated Follow Up/Referral: To see program instructor as soon as possible; to see neurologist within 1 to 2 weeks; discharge clinic tomorrow at [place] [id number] at 1:00 p.m. Medications: Continue home atorvastatin and lisinopril; prescribed aspirin 81 mg daily Discharge Statement: "Patient was advised to return to the ER or call 911 if any headaches, dizziness, shortness of breath, chest pain, abdominal pain, bleeding, fevers, or worsening of medical condition. Patient was counseled about treatment plan, medications, possible side effects, patientverbalized understanding. All questions were answered to the best of my ability. This discharge took greater then 30 minutes in planning, reviewing documentation, counseling the patient, and discussing with other team members." ASSESSMENT ASSESSMENT Assessment Vision disturbance, likely right homonymous hemianopsia, unremarkable Brain MRI Double vision evoked by upper left gazing Date of Service: Sep 19, 2024 Billing Provider: KULWANT WILKINSON MD Common Visit Codes: [id number] DISCH DAY >30min KULWANT WILKINSON MD Sep 19, 2024 10:46
--- NOTE | 2024-09-19 10:59 | DVHPN2 ---
Consult Progress Note Subjective Patient reports: Feels better Objective vital signs Vital Sign Date Time Temp Pulse Resp B/P (MAP) Pulse Ox O2 Delivery O2 Flow Rate FiO2 09/19/24 09:56 97.8 69 16 109/74 (86) 96 97.8 09/19/24 08:05 Room Air* 0 21 Total Intake and Output 09/18/24 09/18/24 09/19/24 15:00 23:00 07:00 Intake Total 1600 ml 1600 ml Balance 1600 ml 1600 ml medications Current Medications Medications Dose Ordered Sig/Jose Route Start Time Stop Time Status Last Admin Dose Admin Lisinopril 20 mg DAILY PO 09/17/24 10:00 09/18/24 08:58 20 MG Sodium Chloride 10 ml Q8HR IV 09/17/24 06:00 09/19/24 05:27 10 ML Acetaminophen/ Hydrocodone Bitart 1 tab Q4HP PRN PO 09/16/24 23:45 Ondansetron HCl 4 mg Q4HP PRN IV 09/16/24 23:45 Docusate Sodium 100 mg BIDPRN PRN PO 09/16/24 23:45 Acetaminophen 650 mg Q6HP PRN PO 09/16/24 23:45 Nitroglycerin 0.4 mg Q5MINP PRN SL 09/17/24 00:00 Morphine Sulfate 2 mg Q30M PRN IV 09/17/24 00:00 Lorazepam 1 mg ONCE PRN IV 09/17/24 22:15 Aspirin 81 mg DAILY PO 09/18/24 10:00 09/19/24 09:59 81 MG Atorvastatin Calcium 20 mg HS PO 09/18/24 20:00 09/18/24 22:02 20 MG Examination: CVS:Normal (Telemetry reviewed, consistent with sinus rhythm at 65 beats per minute, no significant overnight events noted) laboratory and microbiology Laboratory Tests 09/19/24 05:05 09/18/24 08:31 Test 09/18/24 08:31 Range/Units Serum Glucose 84 74-106 mg/dL Problem List/Assessment/Plan Problem List/Assessment/Plan Suspected Stroke - ST negative, MRI negative. Not a candidate for MATHEW at [facility] time, will await MRI results. Continue tele monitoring. Check TTE. On asprini and statin * HTN - recommend hold BP meds for permissive HTN until clered by neurology. * HLD - statin. * Palpitations - continue telemetry monitoring. Check TSH. If no significant arrhythmias noted while inpatient recommend outpatient follow up for event monitoring. Case Discussed with Dr Fournier. CT head MRI head negative for acute pathology. Follow up echo with normal EF 65%, no significant valvular structural abnormalities. No arrhythmias noted on telemetry review. Continue outpatient monitoring. No further cardiac workup indicated at this time. Stable from Cardiology standpoint. This medical document was created using an electronic medical record system with voice recognition software and computerized dictation system. Although this document has been carefully reviewed, there might still be some phonetic and typographical errors. Occasional wrong-word or ``sound-alike substitutions may have occurred due to the inherent limitations of voice recognition software. These areas are purely typographical due to imperfections of the software programs and do not reflect any compromise in the patient's medical care. Please read the chart carefully and recognize, using context, where these substitutions have occurred. Thank you for allowing me to participate in the management of this patient. The treatment plan was discussed with and agreed upon by patient/family including requesting consultants and ordering of imaging/procedures. Plan discussed with: Patient Date of Service: Sep 19, 2024 Billing Provider: LUCIANA BOYER Common Visit Codes: [id number] INP/OBS CARE(HIGH) LUCIANA BOYER Sep 19, 2024 10:59
--- NOTE | 2024-09-19 22:44 | DVHPN2 ---
Consult Progress Note Subjective Patient reports: Feels better Other Systems: Patient was seen and evaluated in follow up. MRI head negative for acute pathology. Follow up echo with normal EF 65%, no significant valvular structural abnormalities. No arrhythmias noted on telemetry review. Stable from Cardiology standpoint. Telemetry reviewed. Objective vital signs Vital Sign Date Time Temp Pulse Resp B/P (MAP) Pulse Ox O2 Delivery O2 Flow Rate FiO2 09/19/24 09:56 97.8 69 16 109/74 (86) 96 97.8 09/19/24 08:05 Room Air* 0 21 Total Intake and Output 09/18/24 09/18/24 09/19/24 15:00 23:00 07:00 Intake Total 1600 ml 1600 ml Balance 1600 ml 1600 ml Examination: GENERAL:Normal, HEENT:Normal, NECK:Normal, LUNGS:Normal, CVS:Normal, ABDOMEN:Normal, SKIN:Normal, NEURO:Normal laboratory and microbiology Laboratory Tests 09/19/24 05:05 09/18/24 08:31 Test 09/18/24 08:31 Range/Units Serum Glucose 84 74-106 mg/dL Problem List/Assessment/Plan Problem List/Assessment/Plan Assessment Suspected Stroke. HTN. HLD. Heart palpitations. Plan/Recommendation Continued all current supportive medical care. Patient has been seen by Fabrizio Piña NP on my behalf, him and I discussed the plan with the patient. Continue telemetry monitoring. Aspirin, Lipitor. Lisinopril. Morphine and [place] for pain management. Additional plan as per the hospital course. Plan discussed with: Patient Date of Service: Sep 19, 2024 Billing Provider: ELIA FITZGERALD MD Cardiology Common Codes: [id number] INP/OBS CARE (High) ELIA FITZGERALD MD Sep 19, 2024 16:31
== END 2024-09-19 12:58 | disposition home or self-care (01) | DRG 47 ==
LOC: ER 21:20 → OVERFLOW 23:49 → TELE-CENTR 09-17 21:41
PROVIDERS: ADMIT Internal Medicine; ATTEND Internal Medicine
DX: G45.9 Transient cerebral ischemic attack, unspecified (principal); H53.47 Heteronymous bilateral field defects; I11.9 Hypertensive heart disease without heart failure; D72.829 Elevated white blood cell count, unspecified; R51.9 Headache, unspecified; H54.62 Unqualified visual loss, left eye, normal vision right eye; E78.5 Hyperlipidemia, unspecified; H53.2 Diplopia; F12.10 Cannabis abuse, uncomplicated; E66.01 Morbid (severe) obesity due to excess calories; Z82.3 Family history of stroke; Z79.899 Other long term (current) drug therapy; Z68.35 Body mass index [BMI] 35.0-35.9, adult
CPT/HCPCS: 36415; 70450; 70551; 71045; 80048; 80053; 80061; 80307; 81001; 84443; 84484; 85025; 85652; 86141; 93306; 93886; 99291; G0378